=== PATIENT | female | born 1985 | race Hispanic/Latino ===

== ENCOUNTER 2020-04-09 06:08 | Inpatient (IN) | payer OTHER, SELFPAY ==
[2020-04-09] VITALS (141 sets, daily range): BP systolic 81–151; BP diastolic 42–108; PULSE 51–223; RESP 11–21; TEMP 36.4–37.8; O2SAT 93–100
--- NOTE | 2020-04-09 08:29 | LDADM ---
This patient, Lisset Valdes, was admitted to Labor/Delivery/Recovery 105 on 04/09/20 at 06:08. Plans for labor, pain management and were discussed with patient. Patient/family oriented to hospital policies and general routines including ID bracelet, bed and alarms, visiting hours, pain management, procedures, bathroom and other care routines, personal items, smoking policy, room service/diet and guest tray routines, security routines, and visiting hours. Patient/Family are encouraged to report perceived risks to care and to ask questions if they do not understand what they are told or what they should do. See OBIX for further documentation.
[2020-04-09 08:45] LABS: Basophils Percent Auto 0.5 % (0.2-1.2); Eosinophils Absolute Auto 0.1 K/mm3 (0-0.3); Eosinophils Percent Auto 1.9 % (0-4.4); Immature Granulocyte Absolute 0.02 K/mm3 (0.00-0.031); Immature Granulocyte Percent A 0.3 % (0-0.5); Lymphocytes Absolute Auto 1.19 K/mm3 (0.9-3.2); Lymphocytes Percent Auto 18.5 % (18.3-44.2); Mean Corpuscular HGB Conc 32.4 g/dl (32-36); Mean Corpuscular Hemoglobin 26.7 pg (26-34); Mean Corpuscular Volume 82.2 fl (80-100); Mean Platelet Volume 11.2 fl (7.4-10.4); Monocytes Absolute Auto 0.5 K/mm3 (0.1-0.6); Monocytes Percent Auto 8.2 % (2.6-8.5); Neutrophils Absolute Auto 4.5 K/mm3 (1.3-6.7); Neutrophils Percent Auto 70.6 % (45.5-73.1); Platelet Count Result 227 k/mm3 (150-375); Red Cell Distribution Width 13.5 % (11.5-14.5); White Blood Count 6.4 K/mm3 (4.5-10.0)
[2020-04-09] MEDS: LACTATED RINGERS 1,000 ML 125 ML IV CONT ×3 (08:58→14:30)
[2020-04-09] MEDS: OXYTOCIN 30 UNITS/NS 500 ML 30 UNITS/500 ML BAG 6 UNITS IV CONT (08:58)
[2020-04-09] MEDS: AMPICILLIN 2 GM/NS 100 ML 2 GM/100 ML BAG IVPB (17:55)
[2020-04-09] MEDS: SODIUM CHLORIDE 0.9% IV 300 ML 600 ML I-UTERINE (18:05)
[2020-04-09 19:16] LABS: Rubella IgG Antibody 54.3 IU/ML
[2020-04-09 19:21] LABS: Hepatitis B Surface Antigen Negative (Negative)
--- NOTE | 2020-04-09 20:07 | WPDANESEPP ---
Anes - Eval Pre Procedure Procedure: Labor epidural Date/Time: 04/09/20 20:07 Surgeon: Davie Preop Diagnosis: Abd pain with contractions Pre Op Diagnosis: leaking Patient Data Age: 34 Gender: F Height: Weight: Last Vital Signs Temp 98 F 04/09/20 18:16 Pulse 223 H 04/09/20 19:46 BP 148/108 H 04/09/20 19:46 Pulse Ox 100 04/09/20 20:06 Allergies Allergy/AdvReac Type Severity Reaction Status Date / Time No Known Allergies Allergy Verified 11/17/15 18:52 Home Medications Medication Instructions Recorded Confirmed Type pantoprazole 40 mg PO HS 04/06/20 04/06/20 History Laboratory Tests 04/09/20 04/09/20 04/09/20 08:39 08:40 08:40 WBC 6.4 K/mm3 K/mm3 (4.5-10.0) RBC 4.50 M/mm3 M/mm3 (4.2-5.4) Hgb 12.0 g/dL g/dL (12.0-15.0) Hct 37.0 % % (37.0-47.0) MCV 82.2 fl fl (80-100) MCH 26.7 pg pg (26-34) MCHC 32.4 g/dl g/dl (32-36) RDW 13.5 % % (11.5-14.5) Plt Count 227 k/mm3 k/mm3 (150-375) MPV 11.2 fl H fl (7.4-10.4) Immature Gran % (Auto) 0.3 % % (0-0.5) Neut % (Auto) 70.6 % % (45.5-73.1) Lymph % (Auto) 18.5 % % (18.3-44.2) [place] % (Auto) 8.2 % % (2.6-8.5) Eos % (Auto) 1.9 % % (0-4.4) Baso % (Auto) 0.5 % % (0.2-1.2) Lymph # (Auto) 1.19 K/mm3 K/mm3 (0.9-3.2) [place] # (Auto) 0.5 K/mm3 K/mm3 (0.1-0.6) Eos # (Auto) 0.1 K/mm3 K/mm3 (0-0.3) Baso # (Auto) 0.0 K/mm3 K/mm3 (0.0-0.1) Abs Immat Gran (auto) 0.02 K/mm3 K/mm3 (0.00-0.031) Absolute Neuts (auto) 4.5 K/mm3 K/mm3 (1.3-6.7) Absolute Nucleated RBC 0.0 K/mm3 K/mm3 (0.0-0.012) Nucleated RBC % 0.0 % % (0.0-0.2) RPR Pending Hep Bs Antigen Rubella IgG Antibody Blood Type B Positive Antibody Screen Negative 04/09/20 04/09/20 08:40 08:40 WBC RBC Hgb Hct MCV MCH MCHC RDW Plt Count MPV Immature Gran % (Auto) Neut % (Auto) Lymph % (Auto) [place] % (Auto) Eos % (Auto) Baso % (Auto) Lymph # (Auto) [place] # (Auto) Eos # (Auto) Baso # (Auto) Abs Immat Gran (auto) Absolute Neuts (auto) Absolute Nucleated RBC Nucleated RBC % RPR Hep Bs Antigen Negative (Negative) Rubella IgG Antibody 54.3 IU/ML IU/ML (10 - ) Blood Type Antibody Screen Patient hx anesthesia problems: none Family hx anesthesia problems: none PMFSH Social History Social History Smoking status: Never smoker Second hand tobacco smoke exposure: No Substance use: never Gender identity (if verbalized by the patient): Female Spiritual care concerns: No Exam Day of Procedure 04/09/20 20:07 Patient weight: normal Neurological: alert and oriented
--- NOTE | 2020-04-09 20:53 | PM.IMHP ---
H&P: HPI History of Present Illness Chief complaint: leaking Narrative: Lisset Valdes is a 34 year old female at 39+4 who came in this morning after leaking fluid started around 1900 04/08. She was confirmed to have SROM and was 3-4 cm on admission. She was augmented with pitocin, which had to be stopped a few times due to variable and then late decelerations. She has now been 7-8 cm for about 4 hours despite adequate ctx on IUPC, and fetus is having repetitive decels, some late and some variable. Review of Systems Review of Systems: All systems reviewed & are unremarkable except as noted in HPI and below PMFSH Social History Social History Smoking status: Never smoker Second hand tobacco smoke exposure: No Substance use: never Gender identity (if verbalized by the patient): Female Spiritual care concerns: No Meds Home Medications and Allergies Home Medications Medication Instructions Recorded Confirmed Type pantoprazole 40 mg PO HS 04/06/20 04/06/20 History Allergies Allergy/AdvReac Type Severity Reaction Status Date / Time No Known Allergies Allergy Verified 11/17/15 18:52 Vital Signs Vital Signs - 24 hr 04/09/20 07:00 04/09/20 08:15 04/09/20 08:17 Temperature 36.6 C Pulse Rate 63 67 Blood Pressure 111/64 107/72 Pulse Oximetry 04/09/20 08:31 04/09/20 08:46 04/09/20 09:00 Temperature 36.4 C Pulse Rate 64 61 Blood Pressure 120/75 117/69 Pulse Oximetry 04/09/20 09:01 04/09/20 09:16 04/09/20 09:31 Temperature Pulse Rate 68 69 73 Blood Pressure 120/72 125/69 120/74 Pulse Oximetry 04/09/20 09:46 04/09/20 10:01 04/09/20 10:16 Temperature Pulse Rate 68 68 73 Blood Pressure 122/70 125/76 114/74 Pulse Oximetry 04/09/20 10:31 04/09/20 10:46 04/09/20 11:00 Temperature 36.6 C Pulse Rate 78 74 Blood Pressure 120/77 120/77 Pulse Oximetry 04/09/20 11:01 04/09/20 11:16 07/18/20 11:46 Temperature Pulse Rate 67 81 68 Blood Pressure 122/71 117/75 122/68 Pulse Oximetry 04/09/20 12:01 04/09/20 12:16 04/09/20 12:32 Temperature Pulse Rate 72 66 66 Blood Pressure 136/73 135/73 116/63 Pulse Oximetry 04/09/20 12:46 04/09/20 13:00 04/09/20 13:01 Temperature 36.4 C Pulse Rate 69 66 Blood Pressure 115/75 129/68 Pulse Oximetry 04/09/20 13:16 04/09/20 13:31 04/09/20 13:46 Temperature Pulse Rate 71 66 68 Blood Pressure 114/73 115/74 112/65 Pulse Oximetry 04/09/20 13:55 04/09/20 13:56 04/09/20 13:57 Temperature Pulse Rate 69 72 Blood Pressure 118/69 118/60 Pulse Oximetry 99 04/09/20 13:59 04/09/20 14:00 04/09/20 14:01 Temperature Pulse Rate 65 73 Blood Pressure 109/60 117/61 Pulse Oximetry 99 04/09/20 14:04 04/09/20 14:06 04/09/20 14:09 Temperature Pulse Rate 68 64 62 Blood Pressure 121/69 112/56 L 107/59 L Pulse Oximetry 04/09/20 14:11 04/09/20 14:13 04/09/20 14:16 Temperature Pulse Rate 64 62 61 Blood Pressure 108/57 L 111/58 L 112/64 Pulse Oximetry 04/09/20 14:19 04/09/20 14:21 04/09/20 14:24 Temperature Pulse Rate 57 L 59 L 61 Blood Pressure 107/54 L 110/61 107/47 L Pulse Oximetry 04/09/20 14:26 04/09/20 14:29 04/09/20 14:31 Temperature Pulse Rate 79 66 63 Blood Pressure 94/59 L 103/57 L 109/66 Pulse Oximetry 04/09/20 14:34 04/09/20 14:36 04/09/20 14:46 Temperature Pulse Rate 59 L 55 L 54 L Blood Pressure 107/59 L 113/60 118/65 Pulse Oximetry 04/09/20 15:00 04/09/20 15:01 04/09/20 15:16 Temperature 36.6 C Pulse Rate 55 L 57 L Blood Pressure 114/64 109/63 Pulse Oximetry 04/09/20 15:31 04/09/20 15:37 04/09/20 15:42 Temperature Pulse Rate 53 L Blood Pressure 118/67 Pulse Oximetry 99 99 04/09/20 15:46 04/09/20 15:47 04/09/20 15:52 Temperature Pulse Rate 58 L Blood Pressure 90/46 L Pulse Oximetry
--- NOTE | 2020-04-09 20:56 | WPDANESEFPP ---
Anes - Eval Final PreProcedure Day of Procedure 04/09/20 20:56 Patient weight: obese Heart: regular rate and rhythm Lungs: clear to auscultation and normal air movement Airway: Mallampati scale class II Neurological: alert and oriented Last oral intake: >/= 8 hours ASA classification: II Emergent: yes Anesthetic plan: proceed Anesthesia type and monitoring: regional epidural and standard monitoring Informed Consent: The patient's anesthetic plan and its attendant risks and benefits were discussed with the patient/family/POA. Questions were solicited and answers provided to the satisfaction of the patient/family/POA.
--- NOTE | 2020-04-09 21:00 | PM.OP ---
Procedure Note - Brief Procedure Note - Brief Date of procedure: 04/09/20 Pre-op diagnosis: leaking Arrest of dilation, decelerations Post-op diagnosis: same Procedure performed: Primary LTCS Anesthesia: epidural Surgeon: Janet Ward MD Estimated blood loss (mL): 395 Drains: Yes (Heart) Packing: No Pathology: none sent Complications: No immediate complications Condition: stable Disposition: PACU Findings: Male infant, cephalic, Apgars 9/9, weight 7# 1oz; meconium fluid; normal uterus, tubes, and ovaries
[2020-04-09] MEDS: KETOROLAC 30 MG/ML VIAL (*BKC) IV PUSH (22:30)
[2020-04-09] MEDS: DEXTROSE 5%/0.45% SOD CHL 1,000 ML 125 ML IV CONT (23:15)
[2020-04-09] MEDS: MEPERIDINE HCL INJ 50 MG/ML AMPUL 12.5 MG IV PUSH (23:15)
[2020-04-10] VITALS (15 sets, daily range): BP systolic 91–116; BP diastolic 54–66; PULSE 57–85; RESP 14–20; TEMP 36.9–37.5; O2SAT 95–100
--- NOTE | 2020-04-10 00:07 | PC.NURSE ---
Patient transferred to post room #291 via stretcher. Support person present who helped interpret for the patient as well as the nurse, the patient's is also present. Oriented to unit, room, information board, admission packet and security measures. Patient verbalizes understanding. Patient requested baby be taken to the nursery so she and her could rest.
--- NOTE | 2020-04-10 01:03 | PC.NURSE ---
Patient transferred to post room #291 via stretcher. Support person present. Oriented to unit, room, information board, rooming in, admission packet and security measures. Patient verbalizes understanding.
[2020-04-10] MEDS: KETOROLAC 30 MG/ML VIAL (*BKC) IV PUSH ×2 (04:06→12:30)
[2020-04-10] MEDS: diphenhydrAMINE HCl INJ 50 MG/ML VIAL 25 MG IV PUSH (04:16)
[2020-04-10 05:06] LABS: Basophils Percent Auto 0.3 % (0.2-1.2); Eosinophils Percent Auto 0.2 % (0-4.4); Hemoglobin 9.3 g/dL (12.0-15.0); Immature Granulocyte Absolute 0.02 K/mm3 (0.00-0.031); Immature Granulocyte Percent A 0.2 % (0-0.5); Lymphocytes Absolute Auto 1.03 K/mm3 (0.9-3.2); Lymphocytes Percent Auto 10.2 % (18.3-44.2); Mean Corpuscular HGB Conc 32.1 g/dl (32-36); Mean Corpuscular Hemoglobin 26.5 pg (26-34); Mean Corpuscular Volume 82.6 fl (80-100); Mean Platelet Volume 11.4 fl (7.4-10.4); Monocytes Absolute Auto 0.5 K/mm3 (0.1-0.6); Monocytes Percent Auto 4.9 % (2.6-8.5); Neutrophils Absolute Auto 8.5 K/mm3 (1.3-6.7); Neutrophils Percent Auto 84.2 % (45.5-73.1); Platelet Count Result 175 k/mm3 (150-375); Red Blood Count 3.51 M/mm3 (4.2-5.4); Red Cell Distribution Width 13.5 % (11.5-14.5); White Blood Count 10.1 K/mm3 (4.5-10.0)
[2020-04-10] MEDS: KCL 20 MEQ/D5/0.45% SOD CHL 1,000 ML 125 ML IV CONT (07:49)
[2020-04-10] MEDS: SALINE 0.65% NAS SOLN 44 ML BTL 1 SPRAY NASAL (09:17)
--- NOTE | 2020-04-10 09:34 | WPDANLDNPN2 ---
Anes-Prog Note L&D-Neuraxial Date/Time: 04/10/20 09:34 Neuraxial medications: epidural PF morphine Opiod-related complaints: none Patient feedback: Patient satisfied with post-operative pain management.
--- NOTE | 2020-04-10 09:34 | WPDANLDPN2 ---
Anes-Prog Note L&D Date/Time: 04/10/20 09:34 Comfortable throughout: labor, delivery and section Neuraxial method: epidural Epidural/Spinal procedure site: clean & non-tender Neuro status: Neuro function grossly intact. Cardiovascular status: normal Respiratory status: normal Airway patency: baseline Mental status: baseline Post-Op hydration status: normal Vital Signs: Last Vital Signs Temp 37.5 C 04/10/20 08:00 Pulse 70 04/10/20 08:00 Resp 20 04/10/20 08:00 BP 91/54 L 04/10/20 08:00 Pulse Ox 98 04/10/20 08:00 I/O: Intake & Output 04/09/20 04/10/20 04/10/20 23:59 07:59 15:59 Intake Total 1100 200 Output Total 945 375 Balance 155 -175 Post-procedural complaints: none Patient feedback: Patient satisfied with anesthetic care.
--- NOTE | 2020-04-10 10:04 | PM.OBPNVD ---
OB - PN: Subj Subjective Date/time seen: 04/10/20 10:04 Patient comments: no complaints, pain well controlled, incisional pain, tolerating diet, flatus present and other (Lochia similar to menses) baby status: doing well OB - PN: Obj Data Labs CBC & Chem 7: 04/10/20 04:22 Labs: Laboratory Results - last 24 hr 04/09/20 04/09/20 04/10/20 08:40 08:40 04:22 WBC 10.1 H RBC 3.51 L Hgb 9.3 L Hct 29.0 L MCV 82.6 MCH 26.5 MCHC 32.1 RDW 13.5 Plt Count 175 MPV 11.4 H Immature Gran % (Auto) 0.2 Neut % (Auto) 84.2 H Lymph % (Auto) 10.2 L [place] % (Auto) 4.9 Eos % (Auto) 0.2 Baso % (Auto) 0.3 Lymph # (Auto) 1.03 [place] # (Auto) 0.5 Eos # (Auto) 0.0 Baso # (Auto) 0.0 Abs Immat Gran (auto) 0.02 Absolute Neuts (auto) 8.5 H Absolute Nucleated RBC 0.0 Nucleated RBC % 0.0 Hep Bs Antigen Negative Rubella IgG Antibody 54.3 OB - PN A/P Plan day: 1 (s/p C section, doing well) Plan: routine care Time Spent With Patient Time: Total time spent is greater than 50% in coordination of care (as documented) at patient's floor/unit and/or counseling patient: Exam Const: General: no acute distress Resp: Auscultation: clear to auscultation bilaterally Cardio: Rate: regular rate Rhythm: regular rhythm GI: Inspection: non-distended, incision (Intact without erythema, drainage, or induration) and other (Fundus firm and nontender at umbilicus) GI Palp: Yes abdominal tenderness (appropriate ) and Yes Soft to palpation Extrem: General: no edema
[2020-04-10] MEDS: DOCUSATE SODIUM 100 MG CAPSULE PO ×2 (12:56→16:44)
[2020-04-10] MEDS: MULTIVIT/MIN/PREN/FOL AC/IRON TABLET 1 TAB PO (12:56)
[2020-04-10] MEDS: POLYSACCHARIDE IRON COMPLEX 150 MG CAPSULE PO (12:56)
[2020-04-10] MEDS: IBUPROFEN 600 MG TABLET PO ×2 (16:45→22:54)
--- NOTE | 2020-04-10 16:54 | PC.NURSE ---
Used field mechanic/site lead to explain to pt about discontinuing day cath. Also inquired about pain medication and increase liquid intake with pt. Pt also states she has no questions for this RN at this time. Informed both pt and if need anything to call out to nurses station.
[2020-04-10] MEDS: PANTOPRAZOLE 40 MG TABLET PO (22:54)
--- NOTE | 2020-04-11 07:43 | PM.OBPNVD ---
OB - PN: Subj Subjective Date/time seen: 04/11/20 07:43 Patient comments: incisional pain, tolerating diet, flatus present and other (Ambulating and voiding without problems. Lochia similar to menses) [place] baby status: doing well Narrative: She c/o nausea but no emesis. She has been getting out of bed only to use restroom. Pain does improve after pain medication, but she hasn't had any today OB - PN: Obj Data Labs CBC & Chem 7: 04/10/20 04:22 OB - PN A/P Plan day: 2 (s/p C section, doing well) Plan: routine care Comments: We'll try giving her medication to help with nausea and advance diet as tolerated since she would like to eat solid food. I encouraged her to ambulate more today, in the halls in addition to her room, to encourage bowels to move gas and stool, through. I also advised her to ask for pain medication or anything else she needs whenever she needs it and not let pain or other complaint get out of control before mentioning it. She expressed understanding. Possible discharge tomorrow. Multiple Tube Winding Machine Operator services utilized for communication, and her nurse Kaila was present Time Spent With Patient Time: Total time spent is greater than 50% in coordination of care (as documented) at patient's floor/unit and/or counseling patient: Time with patient: 15 - 25 minutes Review of Systems Review of Systems: All systems reviewed & are unremarkable except as noted in HPI and below Exam Const: General: no acute distress Resp: Auscultation: clear to auscultation bilaterally Cardio: Rate: regular rate Rhythm: regular rhythm GI: Inspection: distended, incision (Intact without erythema, drainage, or induration) and other (Fundus firm and nontender below umbilicus) GI Palp: Yes abdominal tenderness (appropriate) and Yes Soft to palpation Extrem: General: no edema
[2020-04-11 07:45] VITALS: BP 100/67; PULSE 77; RESP 18; TEMP 36.7
[2020-04-11] MEDS: POLYSACCHARIDE IRON COMPLEX 150 MG CAPSULE PO ×2 (07:49→17:54)
[2020-04-11] MEDS: SIMETHICONE 80 MG TAB.CHEW PO ×2 (07:49→14:28)
[2020-04-11] MEDS: IBUPROFEN 600 MG TABLET PO ×3 (07:49→20:44)
[2020-04-11] MEDS: DOCUSATE SODIUM 100 MG CAPSULE PO ×2 (07:49→17:54)
--- NOTE | 2020-04-11 07:49 | PM.OBDSVD ---
DS: Admitting Diagnosis Admitting Diagnosis Admitting Diagnosis: Other uterine inertia DS: Discharge Diagnosis Discharge Diagnosis (1) delivery, delivered, current hospitalization: Code(s): O82 - Encounter for delivery without indication Status: Acute OB - DS: Summary OB Procedures : None OB Procedures Intrapartum: OB Procedures: : None Peripartum Data Infant Delivery Method: Section Procedures: Procedures Operation Date: 04/09/20 20:20 Actual Procedures Side Surgeon p Section Bilateral Janet Ward MD complications: none Status at Discharge Functional status at discharge: independent ambulation Overall status at discharge: patient is progressing back to baseline Time Spent with Patient Time attestation: Total time spent providing and/or coordinating discharge services: Discharge Plan Discharge Attending physician on discharge: Monet Broderick Discharging Clinician: Luisa Garcia Patient Disposition: Home, Self-Care Activity: may shower and pelvic rest Diet: regular Wound Care Instructions: incision open to air Discharge Instructions: Education: Mom and Baby Guide Given to: Patient Follow-Up: Call your delivering provider's office for an appointment to be seen in: 1 and 4 weeks Mom and baby should come to the [facility] for the follow-up appointment. Appointment Date/Time: 04/14/2020 at 9:00 am Call [phone] if you are unable to keep your appointment time. BREAST CARE: 1. Wear a snug supportive bra. 2. For engorgement discomfort: Breast Feeding: A. Apply warm moist washcloths B. Express milk as needed to relieve engorgement C. Wear loose clothing Bottle Feeding: A. May apply ice packs 3. For sore nipples: A. Identify correct latch-on B. Apply warm moist washcloths before and after nursing C. Air dry nipples after nursing D. May apply Lansinoh cream to nipples ABDOMINAL INCISION: (if applicable) 1. Allow incision to air dry 2. Do NOT use lotions for powders on your incision 3. When showering, allow soap and water to run over the incision, but do not wash incision EPISIOTOMY/PERINEAL CARE: 1. Until bleeding stops, use your winter bottle after urinating 2. Change your pad frequently throughout the day 3. You may take sitz baths several times a day (fill your bathtub with warm water and soak for 20 minutes.) Do NOT bathe in the water 4. No tub baths until seen by your physician - You may shower ACTIVITY: 1. Rest as much as possible. 2. Do not exercise or lift anything heavier than your baby (such as laundry or other children.) 3. Avoid stairs or driving as much as possible. 4. Do not put anything into the vagina. No douching, tampons, or sexual activity until seen by physician. NOTIFY PHYSICIAN IF YOU HAVE ANY QUESTIONS OR IF ANY OF THE FOLLOWING SYMPTOMS OCCUR: 1. If your episiotomy or incision becomes red, swollen, or more painful than what you have experienced in the hospital. 2. If your vaginal bleeding becomes foul smelling. 3. If your vaginal bleeding becomes more heavy than a period or if your bleeding changes from pink to bright red. However, you may pass an occasional walnut-sized clot once or twice for the first week . 4. If you experience a sharp, shooting pain in you calves. 5. If you discover a hard, reddened area on your breast or if you experience flu-like symptoms. DIET: 1. Eat regular, well-balanced meals. 2. Drink plenty of fluids daily. If , drink to thirst. Stand Alone Forms: General Discharge Information, Work/School Release IP Follow-up/Referrals: Monet Broderick MD [Physician] - 1 Week Discharge Medications: New hydrocodone-acetaminophen 5-325 mg Tablet 1 tab PO Q3H PRN (Reason: Moderate Pain (4
[2020-04-11] MEDS: ONDANSETRON HCL ODT 4 MG TABLET (07:52)
[2020-04-11 08:49] LABS: Rapid Plasma Reagin Non-Reactive (NonReactive)
[2020-04-11] MEDS: MULTIVIT/MIN/PREN/FOL AC/IRON TABLET 1 TAB PO (11:33)
[2020-04-11 20:40] VITALS: BP 102/62; PULSE 63; RESP 16; TEMP 36.6; O2SAT 99
--- NOTE | 2020-04-12 07:22 | PM.OBPNVD ---
OB - PN: Subj Subjective Date/time seen: 04/12/20 07:22 Patient comments: incisional pain [place] baby status: doing well OB - PN: Obj Data Labs CBC & Chem 7: 04/10/20 04:22 Labs: Laboratory Results - last 24 hr 04/09/20 08:40 RPR Non-reactive OB - PN A/P Plan day: 3 Plan: discharge home Time Spent With Patient Time: Total time spent is greater than 50% in coordination of care (as documented) at patient's floor/unit and/or counseling patient: Review of Systems Review of Systems: All systems reviewed & are unremarkable except as noted in HPI and below Exam Const: General: comfortable Psych: Appearance: grossly normal Affect: normal affect Attitude: cooperative Judgement: Good judgement present (Psych)
[2020-04-12] MEDS: IBUPROFEN 600 MG TABLET PO (08:08)
[2020-04-12] MEDS: MULTIVIT/MIN/PREN/FOL AC/IRON TABLET 1 TAB PO (08:09)
[2020-04-12] MEDS: POLYSACCHARIDE IRON COMPLEX 150 MG CAPSULE PO (08:09)
[2020-04-12] MEDS: DOCUSATE SODIUM 100 MG CAPSULE PO (08:10)
[2020-04-12 09:20] VITALS: BP 114/73; PULSE 73; RESP 18; TEMP 36.7; O2SAT 97
--- NOTE | 2020-04-12 10:30 | PC.NURSE ---
All education done thru the manager competitive intelligence per hospital policy. Mother will attempt infant to breast at times, she then bottle feeds. Mother has reported that she will bottle feed and then has decided she wishes to pump. Breast pump provided due to mother's wishes. Instructions given on breast pump care and usage, pumping schedule, nipple care, and collection and storage of breast milk. Encouraged [id number], breast massage and manual expression to stimulate supply. Pumping log provided and reviewed. Assessed patient for correct flange size, placement and draw. Patient verbalizes and demonstrates understanding of instructions. 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 Again offered to assist mother with attempting to breast, mother declines and states she will bottle feed until her milk comes in. Mother is feeding as required and waking to feed if needed. is currently meeting outcomes for weight, output, jaundice and feeding frequencies. Mother states she feels confident to continue current feeding plan at home. Reviewed transition to breast milk, signs of adequate intake, and engorgement/relief. Instructed to call ICP if intake/output less than required. Reviewed regular medications mother is taking. Information provided per Kori. Reviewed community resources on the [facility] website and in the Mom/Baby guide. Information on outpatient services provided. Mother has no further questions at this time.
--- NOTE | 2020-04-12 14:16 | PC.NURSE ---
Halus translation used for all Assessments, questions asked by patient, and for D/C education. She V/U'd to it all.
--- NOTE | 2020-04-13 12:53 | OP_ITS ---
DATE OF PROCEDURE: 04/09/2020 PREOPERATIVE DIAGNOSES: Intrauterine at 39 weeks and 4 days, arrest of dilation, nonreassuring heart tracing. POSTOPERATIVE DIAGNOSES: Intrauterine at 39 weeks and 4 days, arrest of dilation, nonreassuring heart tracing. PROCEDURE PERFORMED: Primary low-transverse section. ANESTHESIA: Epidural. ESTIMATED BLOOD LOSS: 395 mL. COMPLICATIONS: None. FINDINGS: Male , cephalic presentation, thick meconium fluid. Apgars 9 and 9. Weight 7 pounds 1 ounce. Normal uterus, tubes, and ovaries. INDICATIONS: A 34-year-old, G2, P0-0-1-0, who came in the morning of April 09 after she thought her membranes had ruptured at approximately 7 o'clock p.m. on April 08. She was found to have ruptured membranes, was 3-4 cm dilated at that time. She was augmented using Pitocin throughout the day, it had to be shut off multiple times due to decelerations. She remained between 7 and 8 cm for about 4 hours despite adequate uterine contractions on intrauterine pressure catheter and the baby was starting to have late decelerations in addition to the variable decelerations she had been having earlier, so she was recommended to proceed with . She did sign consent after the risks, benefits, complications, and alternatives were discussed using the help of an personal lines advisor since she speaks Indonesian. DESCRIPTION OF PROCEDURE: She was taken to the operating room, where epidural anesthesia was obtained and found to be adequate. She was prepared and draped in the normal sterile fashion in the dorsal supine position with a leftward tilt. A Pfannenstiel skin incision was made with a scalpel and extended to the underlying layer of fascia with the scalpel. The fascia was incised in the midline, extended laterally with the Morrissey scissors. The underlying rectus muscles were dissected off bluntly and sharply and in the midline. The peritoneum was entered bluntly and then extended sharply inferiorly and superiorly with good visualization of the bladder. The bladder blade was inserted. The vesicouterine peritoneum was tented up with the Metzenbaum scissors and extended laterally. The bladder flap was created digitally. The bladder blade was reinserted. The lower uterine segment was incised in a transverse fashion with the scalpel. The incision was digitally stretched in a cephalocaudad direction. The membranes were ruptured with thick meconium noted. The infant's head was delivered atraumatically and bulb suctioned on the maternal abdomen. The shoulders and body were delivered easily. The cord was clamped x2 and cut. The infant was passed to the awaiting nurse. Cord gas and cord blood were obtained. The placenta was manually extracted. The uterus was exteriorized and cleared of all clots and debris. The uterine incision was closed using 0 Vicryl in a running locked fashion. A 2nd layer of the same suture was used for hemostasis and reinforcement. The uterus was then returned to the abdomen. The gutters were cleared of all clots and debris. The uterine incision was reinspected. There was 1 bleeding point, which was controlled with a 0 Vicryl [id number] suture. The rectus muscles were then inspected. Any bleeding points were cauterized. The rectus muscles were reapproximated using 1 [id number] 0 Vicryl suture. The fascia was then closed using 0 Vicryl in a running fashion. The subcutaneous tissue was irrigated. All bleeding points were cauterized. The subcutaneous tissue was reapproximated using 2-0 Vicryl [id number] sutures and the skin was closed using Insorb absorbable nakia. She tolerated the procedure well. Sponge, lap, needle, and instrument counts were correct x2, and she was taken to the recovery room in
[2020-04-14 09:26] VITALS: BP 129/71; PULSE 65; RESP 20; TEMP 36.7; O2SAT 100
== END 2020-04-12 13:43 | disposition home or self-care (01) | DRG 540 ==
LOC: ANHLDR 07:10 → ANHOB2 04-10 12:35 → ANHLDR 04-14 07:46 → ANHOB2 04-14 07:46
PROVIDERS: Admitting Provider Obstetrics & Gynecology; Visit Provider Obstetrics & Gynecology
PROC: 10D00Z1 Extraction of Products of Conception, Low, Open Approach (ICD-10-PCS; CPT 59514; principal; 2020-04-09 20:20)
DX: O42.92 Full-term premature rupture of membranes, unspecified as to length of time between rupture and onset of labor (principal); Z37.0 Single live birth; Z3A.39 39 weeks gestation of pregnancy; O36.8330 Maternal care for abnormalities of the fetal heart rate or rhythm, third trimester, not applicable or unspecified; O62.2 Other uterine inertia; O99.214 Obesity complicating childbirth; E66.9 Obesity, unspecified
CPT/HCPCS: 36415; 85025; 86592; 86762; 86850; 86900; 86901; 87340; A9270; J0290; J0690; J1200; J1885; J2175; J2274; J2370; J2405; J2590; J2795; J3480; J7030; J7120

== ENCOUNTER 2020-04-15 22:08 | Observation (INO) | payer OTHER, SELFPAY ==
--- NOTE | ~2020-04-15 | CT_ITS ---
EXAMINATION: CT abdomen pelvis w con EXAM DATE: 04/16/2020 00:04 INDICATION: Abdominal pain, recent section one week ago. No bowel movement in 6 days. TECHNIQUE: Spiral CT of the abdomen and pelvis was performed following intravenous injection of 100 m L Omnipaque 350. Axial, coronal and sagittal images were reviewed. The dose-length product (DLP) fo r this examination was 605.93 mGy-cm. The exposure was tailored according to patient size (auto mA e xposure control), and iterative reconstruction (ASIR) was used as additional dose reduction technique . Comparison is made to prior examination from 06/18/2016. FINDINGS: There is a hemangioma within the left liver lobe laterally, contiguous to the spleen, measu ring 2.1 cm in size, clearly demonstrating peripheral nodular enhancement on the previous examination . Several other subcentimeter liver hypodensities too small to characterize but likely benign. The l iver, spleen, adrenal glands and pancreas are otherwise unremarkable. Gallbladder is unremarkable. No biliary obstruction. Portal and splenic veins are patent. Kidneys enhance symmetrically. There is no hydronephrosis. Enlarged uterus, some fluid and several small foci of gas in the lower uterine segment. Th is fluid pocket region measures about 3 x 4 cm in greatest axial dimensions, differential diagnosis i ncluding seroma, hematoma, abscess. The bladder is unremarkable. There is no retroperitoneal or pelv ic lymphadenopathy. Fat stranding along the umbilicus. The appendix is normal. The stomach and small bowel are unremarkable. There is expected amount of c olonic stool. No free intraperitoneal gas. The heart is normal in size. There are no pericardial or pleural effusions. The lung bases are unremarkable. The bones are unremarkable. IMPRESSION: Enlarged uterus, small pocket of fluid and several punctate calcific foci in t he lower uterine segment. Could be normal postoperative appearance, hematoma, seroma. Endometritis, a bscess not excludable. Reviewed, dictated and finalized at location G. IMPRESSION: Enlarged uterus, small pocket of fluid and several punct ate calcific foci in the lower uterine segment. Could be normal postoperative a ppearance, hematoma, seroma. Endometritis, abscess not excludable.
[2020-04-15 22:20] VITALS: BP 115/71; PULSE 67; RESP 20; TEMP 37.2; O2SAT 100
[2020-04-15 22:33] LABS: Basophils Percent Auto 0.6 % (0.2-1.2); Eosinophils Absolute Auto 0.2 K/mm3 (0-0.3); Eosinophils Percent Auto 3.1 % (0-4.4); Hemoglobin 10.6 g/dL (12.0-15.0); Immature Granulocyte Absolute 0.06 K/mm3 (0.00-0.031); Immature Granulocyte Percent A 0.9 % (0-0.5); Lymphocytes Absolute Auto 0.93 K/mm3 (0.9-3.2); Lymphocytes Percent Auto 14.5 % (18.3-44.2); Mean Corpuscular HGB Conc 32.1 g/dl (32-36); Mean Corpuscular Hemoglobin 26.7 pg (26-34); Mean Corpuscular Volume 83.1 fl (80-100); Mean Platelet Volume 9.7 fl (7.4-10.4); Monocytes Absolute Auto 0.5 K/mm3 (0.1-0.6); Monocytes Percent Auto 7.8 % (2.6-8.5); Neutrophils Absolute Auto 4.7 K/mm3 (1.3-6.7); Neutrophils Percent Auto 73.1 % (45.5-73.1); Platelet Count Result 301 k/mm3 (150-375); Red Blood Count 3.97 M/mm3 (4.2-5.4); Red Cell Distribution Width 13.6 % (11.5-14.5); White Blood Count 6.4 K/mm3 (4.5-10.0)
[2020-04-15 22:45] LABS: Alanine Aminotransferase 19 U/L (4-35); Albumin Level 3.6 g/dL (3.5-5.1); Alkaline Phosphatase 165 U/L (38-126); Anion Gap 11.4 mmol/L (7-16); Aspartate Amino Transferase 26 U/L (14-36); Bilirubin,Total 0.2 mg/dL (0.2-1.3); Blood Urea Nitrogen 14 mg/dL (7-17); Calcium 8.9 mg/dL (8.4-10.2); Carbon Dioxide 23 mmol/L (22-30); Chloride 107 mmol/L (98-107); Estimated Glomerular Filt Rate > 60; Glucose 117 mg/dL (65-105); Lipase 119 U/L (23-300); Potassium 3.4 mmol/L (3.4-5.0); Sodium 138 mmol/L (137-145)
--- NOTE | 2020-04-15 23:29 | ED.ABDPAIN ---
HPI - Abdominal Pain General Chief Complaint: Abdominal Pain Stated Complaint: abd bump Time Seen by Provider: 04/15/20 23:25 Source: patient Mode of arrival: ambulatory Limitations: language barrier (Pakistani-speaking, I am able to speak Pakistani also use of emergency room physician) History of Present Illness HPI narrative: Patient is a 34-year-old female G2, P1, currently 7 days from a section at this hospital with Dr. Ward who presents for evaluation of abdominal pain. Pain started 3 days ago, is located throughout her abdomen associated with abdominal distention and bloating. Pain is intermittently severe in nature. She has reported some constipation. She also reports back pain. She is reporting some hematuria without dysuria. Mild vaginal bleeding persists since the section. No purulent or malodorous discharge. Patient reports mild fever yesterday although she is unsure what the actual temperature was. She reports nausea and vomiting. She denies leg swelling, calf pain, chest pain or shortness of breath. Patient also reports history of nephrolithiasis. Related Data Home Medications Medication Instructions Recorded Confirmed Classic 1 tablet PO DAILY 10/18/19 10/18/19 cephalexin 500 mg PO BID 10/18/19 10/18/19 metronidazole 500 mg PO BID 10/18/19 10/18/19 omeprazole 20 mg PO DAILY 10/18/19 10/18/19 terconazole 1 appful VAGINAL HS 10/18/19 10/18/19 pantoprazole 40 mg PO HS 04/06/20 04/06/20 Allergies Allergy/AdvReac Type Severity Reaction Status Date / Time No Known Allergies Allergy Verified 04/15/20 22:23 Review of Systems Review of Systems: Narrative: CONSTITUTIONAL: Reports fever yesterday EYES: Denies visual changes, redness, or discharge. ENT: Denies rhinorrhea, congestion, sore throat, or otalgia. CARDIOVASCULAR: Denies chest pain, palpitations, or edema. RESPIRATORY: Denies cough or dyspnea. GASTROINTESTINAL: Reports abdominal pain, nausea, vomiting and constipation GENITOURINARY: Reports dysuria SKIN: Denies rash or itching. MUSCULOSKELETAL: Reports back pain NEUROLOGIC: Denies headache, numbness, or weakness. [facility] Past Medical History Medical History (Updated 04/16/20 @ 02:13 by Anjali Gaines MD) Abdominal pain, left lower quadrant delivery delivered delivery, delivered, current hospitalization Failure to progress in labor heart rate decelerations affecting management of mother No significant past medical history Surgical History Surgical History (Updated 04/13/20 @ 09:09 by Mari Cartwright) No significant past surgical history Social History Social History Smoking status: Never smoker Second hand tobacco smoke exposure: No Alcohol intake: never Substance use: never Gender identity (if verbalized by the patient): Female Spiritual care concerns: No Agree to blood products: Yes Exam Narrative: Exam Narrative: GENERAL: Awake, alert, conversant HEAD: Normocephalic, atraumatic. EYES: PERRLA and EOMI. ENT: Nares clear, no rhinorrhea or epistaxis. Mucous membranes moist. NECK: Supple. CHEST: No respiratory distress, breathing even and non labored HEART: Regular rate, sinus rhythm ABDOMEN: Mild distention, tender throughout, no rebound, no guarding, incision site is clean, dry, intact, no erythema, no malodorous discharge, no dehiscence EXTREMITIES: Normal range of motion. No edema. SKIN: Warm, dry, no rash. NEURO:No focal deficits. Alert and oriented x3 Course Vital Signs Vital signs: Vital Signs Temperature 37.2 C 04/15/20 22:20 Pulse Rate 67 04/15/20 22:20 Respiratory Rate 20 04/15/20 22:20 Blood Pressure 115/71 04/15/20 22:20 Pulse Oximetry 100 04/15/20 22:20 Temperature 37.2 C 04/15/20 22:20 Pulse Rate 55 L 04/16/20 01:51 Respiratory Rate 14 04/16/20 01:51 Blood Pressure 120/73 04/16/20 01:51 Pulse Oximetr
[2020-04-15] MEDS: ONDANSETRON INJ 4 MG/2 ML VIAL IV PUSH (23:49)
[2020-04-15] MEDS: MORPHINE SULFATE 4 MG/ML INJ IV PUSH (23:49)
[2020-04-15] MEDS: SODIUM CHLORIDE 0.9% IV 1,000 ML 999 ML IV CONT (23:50)
[2020-04-15 23:56] LABS: Add Urine Microscopic? YES; Appearance Urine Cloudy (Clear); Bacteria Urine Trace /hpf; Bilirubin Urine Negative (Negative); Blood Urine 3+ (Negative); Color Urine Yellow (Yellow); Glucose Urine UA Negative (Negative); Ketones Urine Negative (Negative); Leukocyte Esterase Ur 2+ LEU/UL (Negative); Mucus Urine Rare /lpf; Nitrate Urine Negative (Negative); Protein Urine Negative (Negative); Specific Grav Ur 1.024 (1.001-1.035); Squamous Epithelial Cell Urine Many /hpf (Few); WBC Urine >75 /hpf
[2020-04-16 01:51] VITALS: BP 120/73; PULSE 55; RESP 14; O2SAT 100
[2020-04-16 03:07] VITALS: BP 121/87; PULSE 57; RESP 18; TEMP 36.1; O2SAT 100; BMI 31.1
[2020-04-16] MEDS: LACTATED RINGERS 1,000 ML 125 ML IV CONT ×3 (03:23→22:38)
[2020-04-16] MEDS: MORPHINE SULFATE 4 MG/ML INJ IV PUSH ×3 (03:23→22:41)
[2020-04-16] MEDS: ONDANSETRON INJ 4 MG/2 ML VIAL IV PUSH (03:24)
--- NOTE | 2020-04-16 03:39 | ADMGEN ---
This patient, Lisset Valdes, was admitted to 2 Medical Room 256- at 0240. Patient/family oriented to hospital policies and general routines including ID bracelet, bed and alarms, visiting hours, pain management, procedures, bathroom and other care routines, personal items, smoking policy, room service/diet, and visiting hours. Valuables list has been completed. Information on how to activate the Rapid Response Team has been discussed. Patient/Family are encouraged to report perceived risks to care and to ask questions if they do not understand what they are told or what they should do.
[2020-04-16 06:00] VITALS: BP 121/69; PULSE 50; RESP 16; TEMP 36.3; O2SAT 99
[2020-04-16 14:00] VITALS: BP 135/82; PULSE 58; RESP 16; TEMP 36.7; O2SAT 100
[2020-04-16] MEDS: metroNIDAZOLE 250 MG TABLET 500 MG PO (18:13)
--- NOTE | 2020-04-16 18:36 | PM.IMHP ---
H&P: HPI History of Present Illness Chief complaint: UTI, post operative fluid collection Narrative: Lisset Valdes is a 34 year old female Who is postoperative day 10 approximately from a delivery who presented to the emergency department earlier today with abdominal pain. The pain is lower abdominal / pelvic pain. Is in the area of the rectum and vagina. Evaluation emergency department revealed a 4 cm fluid collection it in the intrauterine cavity. The finding is nonspecific for seroma, hematoma, abscess. Patient indicated to me today that she has not had a bowel movement a days. She states her pain at this time is a 2/10. she denies any vaginal bleeding of significance. She denies any urinary symptoms. She denies any chest pain or shortness of breath. She denies any nausea, vomiting, fever, chills. Review of Systems Constitutional: Constitutional: Reports no additional constitutional complaints, Denies fatigue, Denies headache(s), Denies lethargy and Denies weakness Eyes: Eyes: Reports no additional eye complaints, Denies blurry vision and Denies photophobia ENT: Reports as per HPI, Denies headache(s) and Denies neck pain Cardiovascular: Cardiovascular: Denies chest pain, Denies diaphoresis, Denies leg edema, Denies palpitations and Denies dyspnea Respiratory: Respiratory: Denies hemoptysis, Denies dyspnea and Denies wheezing Gastrointestinal: Gastrointestinal: Denies abdominal pain, Denies melena, Denies bloating, Denies hematochezia, Denies nausea and Denies vomiting Genitourinary: Genitourinary: Reports no additional female genitourinary complaints Musculoskeletal: Musculoskeletal: Denies joint swelling, Denies neck pain, Denies numbness and Denies stiffness Neurologic: Denies Abnormal speech present, Denies confusion, Denies headache(s), Denies numbness and Denies weakness Psychiatric: Psychiatric: Denies anxiety, Denies confusion, Denies depression, Denies homicidal ideation and Denies suicidal ideation Endocrine: Endocrine: Denies fatigue and Denies palpitations Allergic/Immunologic: Allergic/Immunologic: Denies wheezing PMFSH Social History Social History Smoking status: Never smoker Second hand tobacco smoke exposure: No Alcohol intake: never Substance use: never Substance use type: does not use Gender identity (if verbalized by the patient): Female Spiritual care concerns: No Agree to blood products: Yes Meds Home Medications and Allergies Home Medications Medication Instructions Recorded Confirmed Type Classic 1 tablet PO DAILY 10/18/19 04/16/20 History cephalexin 500 mg PO BID 10/18/19 04/16/20 History omeprazole 20 mg PO DAILY 10/18/19 04/16/20 History polysaccharide iron complex 150 mg PO BIDWM #30 cap 04/12/20 04/16/20 Rx hydrocodone-acetaminophen [[place]] 1 tablet PO Q4-6H PRN 04/16/20 04/16/20 History Allergies Allergy/AdvReac Type Severity Reaction Status Date / Time No Known Allergies Allergy Verified 04/15/20 22:23 Vital Signs Vital Signs - 24 hr 04/15/20 22:20 04/16/20 01:51 04/16/20 03:07 Temperature 98.9 F 96.9 F L Pulse Rate 67 55 L 57 L Respiratory Rate 20 14 18 Blood Pressure 115/71 120/73 121/87 Pulse Oximetry 100 100 100 04/16/20 06:00 04/16/20 14:00 Temperature 97.3 F L 98.0 F Pulse Rate 50 L 58 L Respiratory Rate 16 16 Blood Pressure 121/69 135/82 Pulse Oximetry 99 100 Exam Const: General: healthy appearing, comfortable and no acute distress; No confusion Orientation/consciousness: No confusion Eyes: Direct Ophthalmoscopy: No photophobia Resp: Auscultation: clear to auscultation bilaterally, no rales, no rhonchi and no wheezes Cardio: Rate: regular rate Heart sounds: no click, no murmurs and no rubs GI: Inspection: non-distended GI Palp: No abdominal tenderness Auscultation: normal bowel sounds Neuro: General: No confusion Speech: No Abnor
[2020-04-16] MEDS: MAGNESIUM CITRATE 300 ML BTL PO (18:53)
[2020-04-16 20:00] VITALS: BP 131/71; PULSE 61; RESP 20; TEMP 36.8; O2SAT 100
[2020-04-17] MEDS: LACTATED RINGERS 1,000 ML 125 ML IV CONT (05:23)
[2020-04-17] MEDS: metroNIDAZOLE 250 MG TABLET 500 MG PO (09:04)
[2020-04-17 11:29] VITALS: BP 116/69; PULSE 58; RESP 17; TEMP 36.9; O2SAT 99
[2020-04-17] MEDS: PANTOPRAZOLE SODIUM IV 40 MG VIAL IV PUSH (11:51)
--- NOTE | 2020-04-17 12:31 | P.PNOB_ITS ---
OB - PN: Subj Subjective Date/time seen: 04/17/20 12:31 The patient reports improving pain. She had a large bowel movement and felt much better. She denies any nausea, vomiting, fever, chills. Her abdominal jenna n is improving. She did report some heartburn. OB - PN: Obj Data Labs CBC & Chem 7: 04/15/20 22:25 04/15/20 22:25 OB - PN A/P Assessment and Plan (1) Abdominal pain, left lower quadrant: Code(s): R10.32 - Left lower quadrant pain Status: Acute Assessment and Plan: This patient is a 34-year-old female who is about 10 days postop from a delivery. She had abdominal pain in the left lower quadrant. She had constipation. She has treat her constipation and now has improved pain. She does not appear to be infected. There was a fluid collection in the uterus. She has been receiving IV and oral antibiotics. We will continue the oral antibiotics outpatient. She will follow up this week (2) Constipation: Code(s): K59.00 - Constipation, unspecified Status: Acute Time Spent With Patient Time: Total time spent is greater than 50% in coordination of care (as documented) at patient's floor/unit and/or counseling patient: Exam Const: General: comfortable, no acute distress and alert Resp: Effort & Inspection: normal respiratory effort Auscultation: no crackles, no rales and no rhonchi Cardio: Rate: regular rate Heart sounds: no click, no murmurs and no rubs GI: Inspection: non-distended GI Palp: No Tenderness to palpation present (GI) Auscultation: normal bowel sounds Other: Incision - CDI Extrem: General: normal to inspection, no pedal edema and no calf tenderness
--- NOTE | 2020-04-17 12:35 | PM.DS ---
DS: Admitting Diagnosis Admitting Diagnosis Admitting Diagnosis: Constipation, abdominal pain DS: Discharge Diagnosis Discharge Diagnosis (1) Abdominal pain, left lower quadrant: Code(s): R10.32 - Left lower quadrant pain Status: Acute (2) Constipation: Code(s): K59.00 - Constipation, unspecified Status: Acute DS: Summary Hospital Course Hospital Course: this patient is a 34-year-old female who is 10 days postop from a delivery. She had left lower quadrant /pelvic pain. She had a small fluid collection the Endo major cavity. She was afebrile and had a normal white count on admission. she was treated with antibiotics, she was observed, later she reported constipation. She is treated for constipation her abdominal pain improved. She remained afebrile throughout her stay. She is ambulating tolerating p.o. and passing flatus Throughout her stay. she had no nausea vomiting fever chills. Time spent discussing smoking cessation with patient: more than 10 minutes Status at Discharge Functional status at discharge: independent ambulation Time Spent with Patient Time attestation: Total time spent providing and/or coordinating discharge services: Discharge Plan Discharge Consulting providers: Burak Holm Discharging Clinician: Monet Broderick Patient Disposition: Home, Self-Care Activity: pelvic rest Diet: as tolerated Wound Care Instructions: incision open to air Patient Instructions: Metronidazole (By mouth), Levofloxacin (By mouth), Pain Management (DC), Fall Prevention (DC), (DC), Antibiotic Form Stand Alone Forms: General Discharge Information Follow-up/Referrals: Monet Broderick MD [Physician] - Discharge Medications: New metronidazole 250 mg Tablet 500 mg PO BID Qty: 18 RF: 0 levofloxacin 500 mg Tablet 500 mg PO 1500 Qty: 9 RF: 0 Continued omeprazole 20 mg Capsule,Delayed Release(Dr/Ec) 20 mg PO DAILY RF: 0 Classic 28 mg iron- 800 mcg tablet 1 tablet PO DAILY RF: 0 polysaccharide iron complex 150 mg iron Capsule 150 mg PO BIDWM Qty: 30 RF: 0 hydrocodone-acetaminophen [[place]] 5-325 mg tablet 1 tablet PO Q4-6H PRN (Reason: pain) RF: 0 Discontinued cephalexin 500 mg capsule 500 mg PO BID RF: 0 Date of admission: 04/16/20 01:50 Primary Care Provider: PHYSICIAN,COMPRESSOR OPERATOR PORTABLE Admitting Provider: Monet Broderick Attending physician on admission: Monet Broderick Condition: Stable
[2020-04-17 12:51] LABS: Hematocrit 33.5 % (37.0-47.0); Hemoglobin 10.6 g/dL (12.0-15.0); Mean Corpuscular HGB Conc 31.6 g/dl (32-36); Mean Corpuscular Hemoglobin 26.4 pg (26-34); Mean Corpuscular Volume 83.3 fl (80-100); Mean Platelet Volume 9.7 fl (7.4-10.4); Platelet Count Result 325 k/mm3 (150-375); Red Blood Count 4.02 M/mm3 (4.2-5.4); Red Cell Distribution Width 13.7 % (11.5-14.5); White Blood Count 6.3 K/mm3 (4.5-10.0)
--- NOTE | 2020-04-17 14:25 | PC.NURSE ---
For discharge purposes this nurse used the leslyt with Mauro #[id number] to provide discharge instructions and answer any questions that the patient had.
== END 2020-04-17 15:00 | disposition home or self-care (01) ==
LOC: ANHED 04-16 02:13 → ANH2MED 04-16 05:51
PROVIDERS: Admitting Provider Obstetrics & Gynecology; Emergency Provider Emergency Medicine; Visit Provider Obstetrics & Gynecology
DX: O90.89 Other complications of the puerperium, not elsewhere classified (principal); R10.32 Left lower quadrant pain; R18.8 Other ascites; O99.63 Diseases of the digestive system complicating the puerperium; K59.00 Constipation, unspecified
CPT/HCPCS: 36415; 74177; 80053; 81001; 83690; 85025; 85027; 87086; 87088; 96361; 96374; 96375; 96376; 99285; A9270; C9113; G0378; G0379; J0131; J0696; J2270; J2405; J7030; J7120; Q9967

== ENCOUNTER 2020-12-30 07:11 | Emergency (ER) | payer OTHER, SELFPAY ==
--- NOTE | ~2020-12-30 | US_ITS ---
EXAMINATION: US OB <=14 wk fetus w TV EXAM DATE: 12/30/2020 09:02 INDICATION: Right lower abdominal pain. 1st trimester. TECHNIQUE: Pelvic obstetrical transabdominal and transvaginal sonogram was performed by a technologi . There are multiple grayscale and Doppler images available for interpretation. There are no long ier studies of this gestation for comparison. FINDINGS: Uterus measures 11.5 x 7.7 x 6.6 cm. There is intrauterine gestation sac. The 1.8 cm mean sac diameter corresponds to estimated gestational age by ultrasound of 6 weeks 4 days. The yolk sac and pole are not identified. There is no sonographic evidence of subchorionic hemorrhage. Rig ht ovary is identified and has lesion consistent with corpus luteal cyst. Left ovary is not identifie d. IMPRESSION: Intrauterine gestation sac, age by ultrasound 6 weeks 4 days. No pole or yolk sac i dentified at this time, cannot confirm viability. Consider 1-2 week follow-up ultrasound. Reviewed, dictated and finalized at location A. IMPRESSION: Intrauterine gestation sac, age by ultrasound 6 weeks 4 days. No fe gabbie pole or yolk sac identified at this time, cannot confirm viability. Consyassine r 1-2 week follow-up ultrasound.
--- NOTE | 2020-12-30 07:36 | ED.ABDPAIN ---
HPI - Abdominal Pain General Chief Complaint: Abdominal Pain Stated Complaint: abd pain Time Seen by Provider: 12/30/20 07:17 Source: patient Mode of arrival: ambulatory Limitations: language barrier (used stratus, video portable pinch riveter) History of Present Illness HPI narrative: Patient is a 36 year old female approximate GA 7 wk 4 dy who presents for evaluation of right lower abdominal and vaginal bleeding. She states she woke up this morning with right lower abdominal pain. She reports pain radiates to her lower back. She also reports a small amount of bleeding. She sees blood when she wipes but she denies passing clots. She denies fever or chills. She does reports dysuria and she has history of UTIs and kidney stones. She has not taken anything for pain. She found out she was 2 days ago at her PCP office, and her last menstrual period was 11/07/20. Pain rated 8/10. Related Data Allergies Allergy/AdvReac Type Severity Reaction Status Date / Time No Known Allergies Allergy Verified 12/30/20 08:03 Review of Systems Review of Systems: All systems reviewed & are unremarkable except as noted in HPI and below Constitutional: Constitutional: Denies chills and Denies fever(s) Cardiovascular: Cardiovascular: Denies chest pain Gastrointestinal: Gastrointestinal: Reports abdominal pain, Denies diarrhea, Reports nausea and Denies vomiting Genitourinary: Genitourinary: Reports abnormal vaginal bleeding, Denies hematuria and Reports dysuria Musculoskeletal: Musculoskeletal: Reports back pain PMF Past Medical History Medical History (Updated 12/30/20 @ 11:16 by Nahomi Kramer MD) Kidney stones Surgical History Surgical History (Updated 12/30/20 @ 07:42 by Nahomi Kraemr MD) H/O lithotripsy Social History Social History (Updated 12/30/20 @ 07:42 by Nahomi Kramer MD) Smoking status: Never smoker Alcohol intake: never Substance use: never Gender identity (if verbalized by the patient): Female Exam Const: General: no acute distress and alert Orientation/consciousness: patient oriented x3 Resp: Effort & Inspection: normal respiratory effort and no retractions Auscultation: clear to auscultation bilaterally Cardio: Rate: regular rate Rhythm: regular rhythm Heart sounds: no murmurs GI: GI Palp: Yes Soft to palpation, Yes Tenderness to palpation present (GI) (Diffuse) and No Guarding due to palpation present (GI) Auscultation: normal bowel sounds : General: Yes no CVA tenderness Other: deferred pelvic exam Skin: General skin exam: normal color Rashes: no rashes Neuro: General: patient oriented x3, moves all extremities and CN's II-XI intact bilaterally Psych: Mental Status: mental status grossly normal Affect: normal affect Course Reevaluation(s) Reevaluation #1: Patient is in on acute distress . She has not fever, leukocytosis to suggest appendicitis. Pain likely from her right ovarian cyst. She was evaluated by Dr. Deena Wilkins revenue liaison for OBGYN. She will follow up with patient in 1 week. I will start her on antibiotics. Date: 12/30/20 Time: 11:12 Vital Signs Vital signs: Vital Signs Temperature 97.3 F L 12/30/20 07:56 Pulse Rate 73 12/30/20 07:56 Respiratory Rate 18 12/30/20 07:56 Blood Pressure 116/69 12/30/20 07:56 Pulse Oximetry 100 12/30/20 07:56 Temperature 97.3 F L 12/30/20 07:56 Pulse Rate 78 12/30/20 11:38 Respiratory Rate 16 12/30/20 11:38 Blood Pressure 102/78 12/30/20 11:38 Pulse Oximetry 100 12/30/20 09:40 MDM - Abdominal Pain Lab Data Attestation: I reviewed the patient's lab results. Result diagrams: 12/30/20 07:49 12/30/20 07:49 Labs: Lab Results 12/30/20 12/30/20 12/30/20 Range/Units 07:49 07:49 07:49 WBC 6.9 (4.5-10.0) K/mm3 RBC 4.82 (4.2-5.4) M/mm3 Hgb 12.3 (12.0-15.0) g/dL Hct 39.4 (37.0-47.0) % MCV 81.7 (80-100) fl MCH 2
[2020-12-30 07:56] VITALS: BP 116/69; PULSE 73; RESP 18; TEMP 36.3; O2SAT 100
[2020-12-30 08:05] LABS: Basophils Absolute Auto 0.1 K/mm3 (0.0-0.1); Basophils Percent Auto 0.9 % (0.2-1.2); Eosinophils Absolute Auto 0.4 K/mm3 (0-0.3); Eosinophils Percent Auto 5.1 % (0-4.4); Hematocrit 39.4 % (37.0-47.0); Hemoglobin 12.3 g/dL (12.0-15.0); Immature Granulocyte Absolute 0.02 K/mm3 (0.00-0.031); Immature Granulocyte Percent A 0.3 % (0-0.5); Lymphocytes Percent Auto 21.9 % (18.3-44.2); Mean Corpuscular HGB Conc 31.2 g/dl (32-36); Mean Corpuscular Hemoglobin 25.5 pg (26-34); Mean Corpuscular Volume 81.7 fl (80-100); Mean Platelet Volume 10.4 fl (7.4-10.4); Monocytes Absolute Auto 0.7 K/mm3 (0.1-0.6); Monocytes Percent Auto 9.5 % (2.6-8.5); Neutrophils Absolute Auto 4.3 K/mm3 (1.3-6.7); Neutrophils Percent Auto 62.3 % (45.5-73.1); Platelet Count Result 247 k/mm3 (150-375); Red Blood Count 4.82 M/mm3 (4.2-5.4); Red Cell Distribution Width 15.6 % (11.5-14.5); White Blood Count 6.9 K/mm3 (4.5-10.0)
[2020-12-30 08:14] LABS: Add Urine Microscopic? YES; Appearance Urine Cloudy (Clear); Bacteria Urine 1+ /hpf; Bilirubin Urine Negative (Negative); Blood Urine 2+ (Negative); Color Urine Yellow (Yellow); Glucose Urine UA Negative (Negative); Ketones Urine Trace mg/dL (Negative); Leukocyte Esterase Ur 1+ LEU/UL (Negative); Mucus Urine Few /lpf; Nitrate Urine Negative (Negative); Protein Urine Negative (Negative); RBC Urine 0-2 /hpf (0-2); Specific Grav Ur 1.019 (1.001-1.035); Squamous Epithelial Cell Urine Many /hpf (Few); Urobilinogen Urine Negative mg/dL (<2.0); WBC Urine 16-20 /hpf
[2020-12-30 08:15] LABS: Alanine Aminotransferase 69 U/L (4-35); Albumin Level 4.2 g/dL (3.5-5.1); Alkaline Phosphatase 111 U/L (38-126); Anion Gap 6 mmol/L (8-16); Aspartate Amino Transferase 62 U/L (14-36); Bilirubin,Total 0.3 mg/dL (0.2-1.3); Blood Urea Nitrogen 10 mg/dL (7-17); Calcium 8.6 mg/dL (8.4-10.2); Carbon Dioxide 24 mmol/L (22-30); Chloride 107 mmol/L (98-107); Estimated CRCL calculation 116 ml/min; Estimated Glomerular Filt Rate > 60; Glucose 119 mg/dL (65-105); Lipase 98 U/L (23-300); Potassium 3.6 mmol/L (3.4-5.0); Sodium 137 mmol/L (137-145)
[2020-12-30 08:22] VITALS: BP 115/65; PULSE 66
[2020-12-30 08:25] VITALS: BP 110/70; PULSE 83
[2020-12-30 08:26] VITALS: BP 109/71; PULSE 76
[2020-12-30 09:40] VITALS: BP 102/70; PULSE 67; RESP 17; O2SAT 100
--- NOTE | 2020-12-30 11:00 | WPDCN ---
Assessment and Plan Assessment and plan (1) with uncertain viability: Code(s): O36.80X0 - with inconclusive viability, not applicable or unspecified Status: Acute Additional Plan US showed gestational sac measuring 1.8cm without a yolk sac or pole This finding is suspicious for, however, not diagnostic of failure Results discussed with patient and Pain subsided with medication May take Tylenol 1000mg every 6 hours as needed No further evidence of bleeding and cervix closed on bimanual exam Rh positive Patient may be discharged home in stable condition Recommend close follow up as outpatient Patient instructed to call my office to schedule visit next week Recommend repeat BHCG and US in 1 week Emergency precautions reviewed with patient Patient implied an understanding All questions and concerns addressed , Dio?s, phone number is [phone] Thank you very much for this consult. I look forward to taking care of this patient in the outpatient setting. HPI Data of Consult Date/Time: 12/30/20 11:00 Primary Care Provider: UNKNOWN,DOCTOR Consult Narrative Narrative: History obtained with use of [email or web address] dairy bar manager services. Lip Cutter And Scorer was Prudencio (ID# [id number]). The patient is a 35yo LMP 11/07/20 who presented to the emergency department with onset of RLQ pain and vaginal spotting. Patient reports noticing spotting on toilet tissue early this AM shortly after she woke up. Around same time, she reports onset of RLQ pain, prompting visit to ED. Patient received pain medication while in the ED and reports alleviation of pain. She reported a mild headache as well as breast tenderness as well. Denies any nausea or vomiting. She has not yet established care during this and does not have a primary CENTRAL STERILIZATION TECHNICIAN. She has a history of a C/S x 1 in 04/2020 here at [facility]. Review of Systems Review of Systems: All systems reviewed & are unremarkable except as noted in HPI and below Constitutional: Constitutional: Reports as per HPI and Reports no additional constitutional complaints Gastrointestinal: Gastrointestinal: Reports as per HPI, Reports no additional gastrointestinal complaints, Denies nausea and Denies vomiting Genitourinary: Genitourinary: Reports no additional female genitourinary complaints, Reports as per HPI and Reports pelvic pain PMFSH Past Medical History Medical History (Updated 04/12/21 @ 12:05 by Deena Wilkins MD) Hx of gastroesophageal reflux (GERD) Kidney stones Surgical History Surgical History (Updated 01/02/21 @ 11:58 by Deena Wilkins MD) H/O lithotripsy History of primary section Social History Social History Smoking status: Never smoker Alcohol intake: never Substance use: never Gender identity (if verbalized by the patient): Female Meds Home Medications and Allergies Home Medications Medication Instructions Recorded Confirmed Type nitrofurantoin monohyd/m-cryst 100 mg PO Q12H 3 Days #6 cap 12/30/20 Rx [Macrobid] Allergies Allergy/AdvReac Type Severity Reaction Status Date / Time No Known Allergies Allergy Verified 12/30/20 08:03 Exam Const: General: cooperative, healthy appearing, comfortable and no acute distress GI: Inspection: non-distended GI Palp: Yes Soft to palpation, No Tenderness to palpation present (GI) and No Guarding due to palpation present (GI) : Bimanual exam- vagina & uterus: normal bimanual exam and enlarged (approx. 6w size) Bimanual Exam- Adnexa, other: normal adnexae Results Labs CBC & Chem 7: 12/30/20 07:49 12/30/20 07:49
[2020-12-30 11:38] VITALS: BP 102/78; PULSE 78; RESP 16
== END 2020-12-30 11:39 | disposition home or self-care (01) ==
PROVIDERS: Emergency Provider General Practice
DX: O20.0 Threatened abortion (principal); O23.41 Unspecified infection of urinary tract in pregnancy, first trimester; Z3A.01 Less than 8 weeks gestation of pregnancy; Z87.442 Personal history of urinary calculi
CPT/HCPCS: 36415; 76801; 76817; 80053; 81001; 81025; 83690; 84702; 85025; 85461; 87070; 87086; 87088; 87491; 87591; 87808; 96374; 99284; J0131

== ENCOUNTER 2021-01-17 10:23 | Outpatient (CLI) | payer OTHER, SELFPAY ==
--- NOTE | ~2021-01-17 | US_ITS ---
EXAMINATION: US OB <= 14 weeks fetus DATE: 01/17/2021 11:18 INDICATION: Threatened miscarriage. Vaginal bleeding. TECHNIQUE: Real-time transabdominal obstetric ultrasound. FINDINGS: Comparison ultrasound dated 12/30/2020 The uterus measures 12.9 x 6 x 8.4 cm. There is an intrauterine gestational sac, with pole iden tified. The crown rump length measures 1.98 cm, which correlates with a estimated gestational age of 8 weeks 4 days. heart tones are identified measuring 159 bpm. There is a small subchorionic hemorrhage measuring up to 1.7 cm maximum dimension. The ovaries are within normal limits. No adnexal masses or fluid collections. IMPRESSION: 1. SL IUP with an EGA of 8 weeks, 4 days (EDC by current ultrasound of 08/25/2021). 2: Small subchorionic hemorrhage. Reviewed, dictated and finalized at location B. IMPRESSION: 1. SL IUP with an EGA of 8 weeks, 4 days (EDC by current ultrasound of 08/25/20). 2: Small subchorionic hemorrhage.
== END 2021-01-17 10:24 | disposition home or self-care (01) ==
LOC: ANHIMG 10:26
PROVIDERS: Visit Provider Student in an Organized Health Care Education/Training Program
DX: O20.9 Hemorrhage in early pregnancy, unspecified (principal); O20.0 Threatened abortion; Z3A.01 Less than 8 weeks gestation of pregnancy
CPT/HCPCS: 76801

== ENCOUNTER 2021-01-31 04:22 | Emergency (ER) | payer OTHER, SELFPAY ==
--- NOTE | ~2021-01-31 | US_ITS ---
EXAMINATION: US OB <=14 wk fetus w TV DATE: 01/31/2021 06:19 INDICATION: Urinary tract infection during first trimester . TECHNIQUE: Real-time pelvic ultrasound utilizing both a transvaginal and transabdominal probe was pe rformed. The interpreting radiologist was not present for the study. COMPARISON: 01/17/2021 FINDINGS: The uterus measures 12.5 x 8.2 x 11.6 cm. There is an intrauterine gestational sac. A pole is identified. The crown rump length measures 2.1 cm, which correlates with an estimated gestational age of 8 weeks and 5 days. No evident heart motion consistent with demise. The right ovary measures 3.5 x 3.0 x 2.2 cm. The left ovary measures 2.9 x 2.5 x 2.3 cm. Vascular silvia w identified in both ovaries. There is no free fluid in the pelvis. IMPRESSION: 1. Single intrauterine pole without evident heart motion consistent with demise wit hout significant change in size of the pole since the prior study. Reviewed, dictated and finalized at location A. IMPRESSION: 1. Single intrauterine pole without evident heart motion consistent with demise without significant change in size of the pole since t he prior study.
[2021-01-31 04:36] VITALS: BP 144/63; PULSE 67; RESP 16; TEMP 36.6; O2SAT 99
--- NOTE | 2021-01-31 04:46 | ED.ABDPAIN ---
HPI - Abdominal Pain General Chief Complaint: Abdominal Pain Stated Complaint: abd pain Time Seen by Provider: 01/31/21 04:45 Source: patient Mode of arrival: ambulatory Limitations: no limitations History of Present Illness HPI narrative: Patient is a 36-year-old female G3, P2 currently 12 weeks dated by last menstrual period and ultrasound, who presents for evaluation of dysuria, frequency suprapubic pressure and left flank pain. Patient denies any vaginal bleeding or discharge. She denies fever or chills. She does report nausea with 3 episodes of nonbloody, nonbilious emesis today. No cough, chest pain or shortness of breath. No recent intercourse. Patient follows with [employer] [employer] Dr. Deena Wilkins. Patient recently diagnosed with gastritis started on an antacid but had been having some reflux symptoms. Those are currently resolved. Related Data Allergies Allergy/AdvReac Type Severity Reaction Status Date / Time No Known Allergies Allergy Verified 01/31/21 04:57 Review of Systems Review of Systems: Narrative: CONSTITUTIONAL: Denies fever, chills, or sweats. EYES: Denies visual changes, redness, or discharge. ENT: Denies rhinorrhea, congestion, sore throat, or otalgia. CARDIOVASCULAR: Denies chest pain, palpitations, or edema. RESPIRATORY: Denies cough or dyspnea. GASTROINTESTINAL: Reports suprapubic pain, nausea, vomiting, denies diarrhea GENITOURINARY: Reports dysuria, hematuria, frequency SKIN: Denies rash or itching. MUSCULOSKELETAL: Denies back pain, joint pain, or myalgia. NEUROLOGIC: Denies headache, numbness, or weakness. Exam Narrative: Exam Narrative: GENERAL: Awake, alert, conversant HEAD: Normocephalic, atraumatic. EYES: PERRLA and EOMI. ENT: Nares clear, no rhinorrhea or epistaxis. Mucous membranes moist. NECK: Supple. CHEST: No respiratory distress, breathing even and non labored HEART: Regular rate, sinus rhythm ABDOMEN:Non distended, suprapubic tenderness, left CVA tenderness EXTREMITIES: Normal range of motion. No edema. SKIN: Warm, dry, no rash. NEURO:No focal deficits. Alert and oriented x3 Course Vital Signs Vital signs: Vital Signs Temperature 36.6 C 01/31/21 04:36 Pulse Rate 67 01/31/21 04:36 Respiratory Rate 16 01/31/21 04:36 Blood Pressure 144/63 H 01/31/21 04:36 Pulse Oximetry 99 01/31/21 04:36 Temperature 36.6 C 01/31/21 04:36 Pulse Rate 65 01/31/21 04:50 Respiratory Rate 16 01/31/21 04:50 Blood Pressure 110/68 01/31/21 04:50 Pulse Oximetry 97 01/31/21 04:50 MDM - Abdominal Pain MDM Narrative Medical decision making narrative: Patient presented for evaluation of dysuria, urgency, suprapubic pain. The time of assessment, ABCs are intact and vital signs are stable. Patient is afebrile. No tachycardia. No hypotension. Laboratory results show no leukocytosis. No anemia. No electrolyte derangement or acute kidney injury. Urinalysis is concerning for urinary tract infection especially given the patient's symptoms. I obtained a bedside ultrasound cannot appreciate cardiac activity of the fetus, very small given dates on bedside ultrasound thus obtained a formal ultrasound which showed a fetus of 8 weeks 5 days without cardiac activity. This is concerning for missed . Patient and family were updated at bedside regarding the results of the ultrasound and blood work. I did contact [employer] [employer] Dr. Lewis who is on-call for Dr. Wilkins to relay the results of the patient's visit in the emergency department today and need for close follow-up. Patient is not having any bleeding, does not require RhoGam. Other vital signs are stable. She was given her first dose of antibiotics in the ER. No colicky flank pain or history of nephrolithiasis to be concerning for kidney stone. Patient feels much improved at the times of reassessments, thus CT abdomen and pelvis was not obtained. Patient was discharged home with family with [employer] [employer] follow-up. Differential D
[2021-01-31 04:50] VITALS: BP 110/68; PULSE 65; RESP 16; O2SAT 97
[2021-01-31] MEDS: SODIUM CHLORIDE 0.9% IV 1,000 ML 999 ML IV CONT (05:28)
[2021-01-31] MEDS: ONDANSETRON INJ 4 MG/2 ML VIAL IV PUSH (05:29)
[2021-01-31 05:44] LABS: Basophils Absolute Auto 0.1 K/mm3 (0.0-0.1); Basophils Percent Auto 0.7 % (0.2-1.2); Eosinophils Absolute Auto 0.6 K/mm3 (0-0.3); Eosinophils Percent Auto 6.5 % (0-4.4); Hematocrit 38.7 % (37.0-47.0); Hemoglobin 12.3 g/dL (12.0-15.0); Immature Granulocyte Absolute 0.03 K/mm3 (0.00-0.031); Immature Granulocyte Percent A 0.3 % (0-0.5); Lymphocytes Absolute Auto 1.47 K/mm3 (0.9-3.2); Lymphocytes Percent Auto 16.4 % (18.3-44.2); Mean Corpuscular HGB Conc 31.8 g/dl (32-36); Mean Corpuscular Hemoglobin 26.1 pg (26-34); Mean Corpuscular Volume 82.2 fl (80-100); Mean Platelet Volume 11.1 fl (7.4-10.4); Monocytes Absolute Auto 0.8 K/mm3 (0.1-0.6); Monocytes Percent Auto 8.7 % (2.6-8.5); Neutrophils Percent Auto 67.4 % (45.5-73.1); Platelet Count Result 274 k/mm3 (150-375); Red Blood Count 4.71 M/mm3 (4.2-5.4); Red Cell Distribution Width 15.1 % (11.5-14.5); White Blood Count 8.9 K/mm3 (4.5-10.0)
[2021-01-31 05:51] LABS: Add Urine Microscopic? YES; Appearance Urine Cloudy (Clear); Bacteria Urine Trace /hpf; Bilirubin Urine Negative (Negative); Blood Urine 1+ (Negative); Color Urine Yellow (Yellow); Glucose Urine UA Negative (Negative); Ketones Urine Negative (Negative); Leukocyte Esterase Ur 3+ LEU/UL (Negative); Mucus Urine Rare /lpf; Nitrate Urine Negative (Negative); Protein Urine Negative (Negative); Squamous Epithelial Cell Urine Few /hpf (Few); Urobilinogen Urine Negative mg/dL (<2.0); WBC Urine >75 /hpf
[2021-01-31 05:55] LABS: Alanine Aminotransferase 36 U/L (4-35); Albumin Level 4.1 g/dL (3.5-5.1); Alkaline Phosphatase 126 U/L (38-126); Anion Gap 7 mmol/L (8-16); Aspartate Amino Transferase 55 U/L (14-36); Bilirubin,Total 0.4 mg/dL (0.2-1.3); Blood Urea Nitrogen 8 mg/dL (7-17); Calcium 9.3 mg/dL (8.4-10.2); Carbon Dioxide 22 mmol/L (22-30); Chloride 108 mmol/L (98-107); Estimated CRCL calculation 146 ml/min; Estimated Glomerular Filt Rate > 60; Glucose 103 mg/dL (65-105); Lipase 103 U/L (23-300); Potassium 3.8 mmol/L (3.4-5.0); Sodium 137 mmol/L (137-145)
--- NOTE | 2021-01-31 06:09 | PC.NURSE ---
Pt still in ultrasound.
--- NOTE | 2021-01-31 06:15 | PC.NURSE ---
Report received from SANDRINE Rasmussen. Pt returns from US, states is feeling. Explained need for IV ABX. Verb understanding. Room darkened for patient comfort.
[2021-01-31 07:17] VITALS: BP 118/75; PULSE 72; RESP 16; O2SAT 100
== END 2021-01-31 07:19 | disposition home or self-care (01) ==
PROVIDERS: Emergency Provider Emergency Medicine; PCP Student in an Organized Health Care Education/Training Program
DX: O02.1 Missed abortion (principal); N12 Tubulo-interstitial nephritis, not specified as acute or chronic
CPT/HCPCS: 36415; 76801; 76817; 80053; 81001; 83690; 84702; 85025; 85461; 87086; 87088; 96365; 96367; 96375; 99284; J0131; J0696; J2405; J7030

== ENCOUNTER 2021-02-15 02:15 | Day surgery (SDC) | payer OTHER, SELFPAY ==
--- NOTE | 2021-02-14 13:07 | WPDANESEPPF ---
Anes - Initial Pre Proc Eval Procedure: Operation Date: 02/15/21 12:00 Proposed Procedures p Suction Dilatation And Curettage - Deena Wilkins MD Date/Time: 02/14/21 13:07 Surgeon: Deena Wilkins MD Pre Op Diagnosis: missed ab Patient Data Age: 35 Gender: F Height: Weight: Allergies Allergy/AdvReac Type Severity Reaction Status Date / Time No Known Allergies Allergy Verified 02/15/21 10:14 Home Medications Medication Instructions Recorded Confirmed Type omeprazole 20 mg PO DAILY PRN 02/15/21 02/15/21 History Patient hx anesthesia problems: none Family hx anesthesia problems: none PMFSH Past Medical History Medical History Abdominal pain, left lower quadrant Acid reflux Anemia Blood transfusion without reported diagnosis delivery delivered 04/09/20, c/s, full term, male, 7#12 Failure to progress in labor heart rate decelerations affecting management of mother H/O nephrolithotomy with removal of calculi Hx of gastroesophageal reflux (GERD) Kidney stones Missed 2010 No significant past medical history Surgical History Surgical History H/O lithotripsy History of primary section Previous section 2019 Family History Family History Other Unknown family medical history Social History Social History Smoking status: Never smoker Alcohol intake: never Substance use: never Gender identity (if verbalized by the patient): Female Spiritual care concerns: No Agree to blood products: Yes Anes - Eval Final PreProcedure Day of Procedure 02/14/21 13:07 Patient weight: obese Heart: regular rate and rhythm Lungs: clear to auscultation and normal air movement Airway: Mallampati scale class II Neurological: alert and oriented Last oral intake: >/= 8 hours ASA classification: II Emergent: no Anesthetic plan: proceed Anesthesia type and monitoring: general GIVS and standard monitoring Informed Consent: The patient's anesthetic plan and its attendant risks and benefits were discussed with the patient/family/POA. Questions were solicited and answers provided to the satisfaction of the patient/family/POA.
--- NOTE | 2021-02-14 16:35 | PM.IMHP ---
H&P: HPI History of Present Illness Date/Time: 02/14/21 16:35 The patient is a 35yo LMP 11/07/20 who was recently diagnosed on 01/31/21 with a missed at approx. 8 weeks 5 days gestation. Patient currently reports mild abdominal pain and cramping. She experienced vaginal bleeding earlier during the , however, none recently. Denies any passage of clot or tissue. Lengthy discussion had with patient regarding management options, including expectant, medical, and surgical. Patient would like to proceed with surgical management. Chief Complaint: missed Review of Systems Review of Systems: All systems reviewed & are unremarkable except as noted in HPI and below Constitutional: Constitutional: Reports as per HPI, Reports no additional constitutional complaints, Denies chills, Denies fever(s), Denies headache(s) and Denies night sweats Eyes: Eyes: Reports as per HPI and Reports no additional eye complaints ENT: Reports system reviewed and no additional complaints, except as documented, Reports as per HPI, Reports Normal hearing present and Denies headache(s) Cardiovascular: Cardiovascular: Reports as per HPI, Reports no additional cardiovascular complaints, Denies chest pain and Denies dyspnea Respiratory: Respiratory: Reports as per HPI, Reports no additional respiratory complaints, Denies cough and Denies dyspnea Gastrointestinal: Gastrointestinal: Reports as per HPI, Reports no additional gastrointestinal complaints, Reports abdominal pain, Denies change in bowel habits, Denies change in stool character, Reports nausea and Denies vomiting Genitourinary: Genitourinary: Reports no additional female genitourinary complaints, Reports as per HPI, Denies abnormal vaginal bleeding, Denies genital lesions, Denies hot flashes, Denies dyspareunia, Denies pelvic pain, Denies sexual dysfunction, Denies urinary incontinence, Denies vaginal discharge, Denies vaginal dryness and Denies vaginal odor Musculoskeletal: Musculoskeletal: Reports no additional musculoskeletal complaints and Reports as per HPI Integumentary/Breasts: Skin/Breast: Reports system reviewed and no additional complaints, except as docu, Reports as per HPI, Denies breast pain and Denies nipple discharge Neurologic: Reports system reviewed and no additional complaints, except as documented, Reports as per HPI, Reports Normal hearing present and Denies headache(s) Psychiatric: Psychiatric: Reports no additional psychiatric complaints, Reports as per HPI, Denies anxiety and Denies depression Endocrine: Endocrine: Reports no additional endocrine complaints and Reports as per HPI Hematologic/Lymphatic: Hematologic/Lymphatic: Reports no additional hematologic/lymphatic complaints and Reports as per HPI Allergic/Immunologic: Allergic/Immunologic: Reports no additional allergic/immunologic complaints and Reports as per HPI PMFSH Past Medical History Medical History Abdominal pain, left lower quadrant Acid reflux Anemia Blood transfusion without reported diagnosis delivery delivered 04/09/20, c/s, full term, male, 7#12 Failure to progress in labor heart rate decelerations affecting management of mother H/O nephrolithotomy with removal of calculi Hx of gastroesophageal reflux (GERD) Kidney stones Missed 2010 No significant past medical history Surgical History Surgical History H/O lithotripsy History of primary section Previous section 2019 Family History Family History Other Unknown family medical history Social History Social History Smoking status: Never smoker Alcohol intake: never Substance use: never Gender identity (if verbalized by the patient): Female Spiritual care concerns: No Agr
[2021-02-15 10:25] VITALS: BMI 31.4
[2021-02-15 10:26] VITALS: BP 118/84; PULSE 77; RESP 18; TEMP 37; O2SAT 100
[2021-02-15] MEDS: ACETAMINOPHEN 500 MG TABLET 1000 MG PO (10:41)
[2021-02-15] MEDS: LACTATED RINGERS 1,000 ML 30 ML IV CONT (10:55)
--- NOTE | 2021-02-15 11:05 | SUR.PREOP ---
1105- Patient's health history, questions and concerns for procedure, and consent reviewed with assistance of [employer] extension educator- Russell, [id number].
--- NOTE | 2021-02-15 11:39 | WPDHPUPDATE1 ---
History and Physical Update Update Date/Time: 02/15/21 11:39 History and Physical has been reviewed, including an updated exam of the patient. There are NO changes in the patient's condition. Risks, benefits, and alternatives have been discussed and questions answered. Patient agrees to proceed with procedure.
--- NOTE | 2021-02-15 11:43 | PM.PROC ---
Procedure Note - Detailed Date of procedure: 02/15/21 Pre-op diagnosis: missed ab Post-op diagnosis: same Procedure performed: Suction dilation and curettage Description of procedure: The patient was taken to the operating room where she self transferred to the operating room table. Patient was placed in dorsal supine position. Anesthesia was administered and found to be adequate. The patient was repositioned in dorsal lithotomy position with the use of Jairo stirrups. The patient was prepped and draped in the usual sterile fashion. A red rubber catheter was used to drain the bladder of 150 cc of light yellow urine. A bivalve speculum was inserted into vagina. The cervix was well visualized. The anterior lip of the cervix was grasped with a single-tooth tenaculum. A paracervical block was performed with 1% lidocaine. 5 cc of lidocaine was administered on both sides for a total of 10 cc. The uterus was sounded to 8cm. The cervix was then serially dilated to accommodate a size 8 rigid curette. The curette was introduced into the endometrial cavity and connected to the suction tubing. The suction aspirator was then activated and the curette was gently rotated clearing the cavity of all products of conception. Three passes with the rigid curette were made. A gritty texture was noted and the procedure was deemed complete. The tenaculum was removed. The tenaculum puncture sites were noted to have minimal oozing. These sites were made hemostatic with silver nitrate. Excellent hemostasis was noted. The vagina was then cleansed and dried and the speculum was removed. The remainder the patient was cleansed and dried. She was taken out of the dorsal lithotomy position and awakened from anesthesia without difficulty. She was transferred to recovery room in stable condition. All sponge and instrument counts were correct at the end of the procedure. The evacuated products of conception were prepared to be sent to pathology for chromosome analysis. The patient tolerated the procedure well. Anesthesia: MAC Surgeon: Deena Wilkins MD Estimated blood loss (mL): 10 IV fluids (mL): 400 Urine output (mL): 150 Drains: No Packing: No Pathology: yes (products of conception) Complications: No immediate complications Condition: stable Disposition: same day Findings: Moderate amount of products of conception
[2021-02-15] MEDS: KETOROLAC 30 MG/ML VIAL (*BKC) IV PUSH (12:19)
[2021-02-15 12:33] VITALS: BP 100/67; PULSE 79; RESP 16; O2SAT 97
[2021-02-15 13:00] VITALS: BP 109/58; PULSE 67; RESP 16
[2021-02-15 13:25] VITALS: BP 105/65; PULSE 75; RESP 16
== END 2021-02-15 13:39 | disposition home or self-care (01) ==
PROVIDERS: PCP Student in an Organized Health Care Education/Training Program; Visit Provider Student in an Organized Health Care Education/Training Program
PROC: (CPT 59820; principal; 2021-02-15 12:00)
DX: O02.1 Missed abortion (principal); K21.9 Gastro-esophageal reflux disease without esophagitis; D64.9 Anemia, unspecified
CPT/HCPCS: 59820; 88305; A9270; J1100; J1885; J2250; J2405; J2704; J3010; J7120

== ENCOUNTER 2021-02-26 18:29 | Emergency (ER) | payer OTHER, SELFPAY ==
[2021-02-26] VITALS (13 sets, daily range): BP systolic 121–129; BP diastolic 76–86; PULSE 64–84; RESP 15–30; TEMP 36.8; O2SAT 92–100
--- NOTE | ~2021-02-26 | CT_ITS ---
EXAMINATION: CT abdomen pelvis w con DATE: 02/26/2021 20:13 INDICATION: Lower abdominal pain. D&C on 02/15/2021 TECHNIQUE: Computed tomography (CT) of the abdomen and pelvis was performed with 100 cc Omnipaque 350 intravenous contrast. Automated exposure control and iterative reconstruction technique were employe d. Exam dose: 575.80 mGy-cm total exam DLP. COMPARISON: 01/31/2021 obstetrical ultrasound 04/11/2020 CT abdomen pelvis FINDINGS: Patchy groundglass densities and atelectasis in both lower lung zones. Cholelithiasis. No gallbladder wall thickening or pericholecystic fluid or fat stranding. Diffuse hepatic steatosis. Approximately 1.8 cm hypoattenuating lesion of the left very posterior lat eral aspect of the liver, previously reported to be a hemangioma The liver is otherwise unremarkable. No other hepatic space-occupying mass lesion. No bile duct or pa ncreatic duct dilatation. No pancreatic mass lesion or calcification. Normal morphology of the adrenal glands. No renal mass lesion or scarring is evident. No urinary tract calculus or hydroureteronephrosis. Uterine enlargement; the uterus measures approximately 14 cm height, 7.7 cm anteroposterior dimension . There is moderate soft tissue density and/or fluid within the endometrial cavity. Peripherally enhancing 12 mm right ovarian cyst. The adnexal areas are otherwise unremarkable. Normal caliber of the abdominal aorta. No intraperitoneal or retroperitoneal or pelvic mass lesion or adenopathy or ascites. Normal appendix. No bowel obstruction, bowel wall thickening, pneumatosis or intraperitoneal free air . Included skeletal structures are unremarkable. IMPRESSION: Uterine enlargement with moderate fluid and/or soft tissue density within the endometria l cavity Cholelithiasis Lateral segment left hepatic hemangioma Reviewed, dictated and finalized at Location A. Reviewed, dictated and finalized at location A. IMPRESSION: Uterine enlargement with moderate fluid and/or soft tissue density within the endometrial cavity Cholelithiasis Lateral segment left hepatic hemangioma
[2021-02-26 18:59] LABS: Basophils Absolute Auto 0.1 K/mm3 (0.0-0.1); Basophils Percent Auto 0.6 % (0.2-1.2); Eosinophils Absolute Auto 0.4 K/mm3 (0-0.3); Eosinophils Percent Auto 4.5 % (0-4.4); Hematocrit 35.3 % (37.0-47.0); Hemoglobin 11.3 g/dL (12.0-15.0); Immature Granulocyte Absolute 0.04 K/mm3 (0.00-0.031); Immature Granulocyte Percent A 0.5 % (0-0.5); Lymphocytes Absolute Auto 1.82 K/mm3 (0.9-3.2); Lymphocytes Percent Auto 22.2 % (18.3-44.2); Mean Corpuscular Volume 81.1 fl (80-100); Monocytes Absolute Auto 0.6 K/mm3 (0.1-0.6); Monocytes Percent Auto 7.6 % (2.6-8.5); Neutrophils Absolute Auto 5.3 K/mm3 (1.3-6.7); Neutrophils Percent Auto 64.6 % (45.5-73.1); Platelet Count Result 259 k/mm3 (150-375); Red Blood Count 4.35 M/mm3 (4.2-5.4); Red Cell Distribution Width 14.6 % (11.5-14.5); White Blood Count 8.2 K/mm3 (4.5-10.0)
[2021-02-26 19:08] LABS: Alanine Aminotransferase 75 U/L (4-35); Albumin Level 4.3 g/dL (3.5-5.1); Alkaline Phosphatase 115 U/L (38-126); Anion Gap 11 mmol/L (8-16); Aspartate Amino Transferase 70 U/L (14-36); Bilirubin,Total 0.3 mg/dL (0.2-1.3); Blood Urea Nitrogen 11 mg/dL (7-17); Calcium 9.6 mg/dL (8.4-10.2); Carbon Dioxide 23 mmol/L (22-30); Chloride 109 mmol/L (98-107); Estimated CRCL calculation 78 ml/min; Estimated Glomerular Filt Rate > 60; Glucose 137 mg/dL (65-105); Potassium 3.4 mmol/L (3.4-5.0); Sodium 143 mmol/L (137-145)
--- NOTE | 2021-02-26 19:14 | ED.GENADULT ---
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 Patient states that she passed a large blood clot approximately an hour ago followed by a large amount of dark red vaginal bleeding. She states that she has a history of having a D&C performed by Dr. Wilkins on 02/15/2021 she states that starting yesterday she had a small amount of light bleeding and has a follow-up appointment scheduled for Saturday states she did begin to develop some abdominal pain last night that is worse today with pain in the bilateral lower abdomen described as crampy in nature she took Tylenol earlier today for the pain she denies any fevers or chills chest pain shortness of breath or any other symptoms Related Data Home Medications Medication Instructions Recorded Confirmed omeprazole 20 mg PO DAILY PRN 02/15/21 02/15/21 Allergies Allergy/AdvReac Type Severity Reaction Status Date / Time No Known Allergies Allergy Verified 02/15/21 10:14 Review of Systems Review of Systems: Narrative: Gen.: Denies fevers or chills ENT: Denies congestion Respiratory: Denies shortness of breath or cough CV: Denies chest pain or palpitations GI: Reports lower abdominal pain. Denies nausea, emesis or diarrhea see HPI Musculoskeletal: Denies back pain or muscle pain Neuro: Denies numbness, tingling, weakness or focal weakness Skin: Denies rash Except as documented, all other systems reviewed and negative [facility] Past Medical History Medical History Abdominal pain, left lower quadrant Acid reflux Anemia Blood transfusion without reported diagnosis delivery delivered 04/09/20, c/s, full term, male, 7#12 Failure to progress in labor heart rate decelerations affecting management of mother H/O nephrolithotomy with removal of calculi Hx of gastroesophageal reflux (GERD) Kidney stones Missed 2010 No significant past medical history Surgical History Surgical History H/O lithotripsy History of primary section Previous section 2019 Family History Family History Other Unknown family medical history Social History Social History Smoking status: Never smoker Alcohol intake: never Substance use: never Gender identity (if verbalized by the patient): Female Spiritual care concerns: No Agree to blood products: Yes Exam Narrative: Exam Narrative: APPEARANCE: No acute distress, nontoxic, resting in bed HEENT: Normocephalic, atraumatic, OMM RESPIRATORY: No respiratory distress, clear to auscultation bilaterally with no rhonchi wheezing or rales CARDIOVASCULAR: RRR s murmur ABDOMINAL: Soft nondistended tender palpation right lower quadrant left lower quadrant no tenderness right lower quadrant no rebound or guarding : Normal external exam small amount of dark maroon blood with clots in vaginal canal cervix is closed bilateral adnexal tenderness no cervical motion tenderness MUSCULOSKELETAl: Moves all extremities. No clubbing, cyanosis or edema. NEURO: Awake and alert. Following commands, speech normal, no focal deficits SKIN:: Warm, dry. Normal Color PSYCHIATRIC: Normal affect/mood Course Course Emergency Course: Called and discussed with Dr. Wilkins presentation and work-up discussed CT results this time feels patient may discharge to follow-up as an outpatient patient is scheduled for an appointment on Saturday Patient states that they are feeling much better at this time. States abdominal pain has resolved. Repeat abdominal exam shows the patient's abdomen to be soft and nontender. Discussed wit
[2021-02-26] MEDS: SODIUM CHLORIDE 0.9% IV 1,000 ML 999 ML IV CONT (19:23)
[2021-02-26] MEDS: MORPHINE SULFATE (*CRX) 2 MG/ML INJ IV PUSH (19:42)
== END 2021-02-26 21:55 | disposition home or self-care (01) ==
PROVIDERS: Emergency Medicine; Emergency Provider Emergency Medicine; PCP Student in an Organized Health Care Education/Training Program
DX: N93.8 Other specified abnormal uterine and vaginal bleeding (principal); R10.32 Left lower quadrant pain; R10.31 Right lower quadrant pain; K21.9 Gastro-esophageal reflux disease without esophagitis; D64.9 Anemia, unspecified; Z87.442 Personal history of urinary calculi; D18.09 Hemangioma of other sites
CPT/HCPCS: 36415; 74177; 80053; 84702; 85025; 86850; 86900; 86901; 96374; 99284; J2270; J7030; Q9967

== ENCOUNTER 2021-03-03 09:11 | Outpatient (CLI) | payer OTHER, SELFPAY ==
--- NOTE | ~2021-03-03 | US_ITS ---
EXAMINATION: US pelvic complete w TV DATE: 03/03/2021 09:47 INDICATION: Missed with recent D&C procedure. Comparison:01/31/2021 TECHNIQUE: Multiple transabdominal and endovaginal sonographic images of the pelvis performed. FINDINGS: The uterus measures 12.3 x 6.3 x 8 cm. The endometrial complex measures 1.3 cm. The right ovary measures 2.4 x 2.3 x 2.3 cm and the left ovary measures 3 x 2.5 x 2.1 cm. There are small follicles in each ovary. Normal doppler signal in both ovaries. There is no free fluid in the pelvis. There are no abnormal masses seen on either side. IMPRESSION: 1. Mildly in the enlarged uterus with endometrial thickening measuring 1.3 cm. Reviewed, dictated and finalized at location B.
== END 2021-03-03 09:12 | disposition home or self-care (01) ==
LOC: ANHIMG 09:12
PROVIDERS: PCP Student in an Organized Health Care Education/Training Program; Visit Provider Student in an Organized Health Care Education/Training Program
DX: O02.1 Missed abortion (principal)
CPT/HCPCS: 76830; 76856

== ENCOUNTER 2021-11-28 01:45 | Day surgery (SDC) | payer OTHER, SELFPAY ==
[2021-11-24 14:21] VITALS: BMI 33.6
--- NOTE | 2021-11-24 14:37 | PC.NURSE ---
Report to the Outpatient Waiting Room, entrance under the green pavilion located off [facility], at time __10:30AM on date _11/28/21 . OR Time: __12:30PM . - You and your visitor will be asked a series of questions to screen for COVID 19 for your protection. - A mask is required within the hospital. Preoperative COVID Testing Requirements: No COVID Test needed if: (proof is required; if not received patient will have Rapid Test prior to entry) - Patient has received COVID Vaccine at least 14 days prior to procedure date or - Patient has positive COVID test result within last 90 days of surgery date. COVID Test needed if above criteria is not met If not COVID vaccinated a COVID test must be conducted within 72 hours of surgery and patient is asked to isolate self from time of testing until procedure. You will go to the [facility] for your COVID testing. The [employer] [facility] site is located at the corner of [address] [facility]. You will only be called if COVID results are positive and your surgeon may reschedule your elective surgery date. Patients may have clear liquids (water, carbonated beverages, clear teas, apple juice) until 3 hours prior to surgery with a maximum of 20 ounces. - No food from midnight until time of surgery - Infants may have breast milk until 4 hours before surgery, formula 6 hours prior to surgery. - Children will be allowed to drink immediately following surgery. If applicable, please bring a bottle or sippy cup to assist with drinking. Juice, water, soda, and popsicles are readily available. For infants on formula, please bring formula the day of surgery. Pacifiers are allowed. Take the following medications with a SIP of water the morning of surgery: NONE Medications to discontinue per physician NONE Date to take last dose Please no make-up, nail [place], hairspray, perfume, deodorant, or body powder the day of surgery. No jewelry (including any body piercings) or valuables the day of surgery, leave them at home. Please take a shower or bath the night before, or the morning of, surgery with an antibacterial soap. Wear comfortable, loose fitting clothing. Children are encouraged to wear pajamas. - Jewelry must be removed prior to entering the operating room. Rings and piercings that are not removed may be cut off. - The hospital will not accept responsibility for valuables. - Please leave all valuables, including medications, at home the day of surgery. If you are going home after surgery, a licensed wagon driver must drive you home. - NO public transportation without another adult. - We recommend that an adult stay with you for 24 hours following discharge. - We also recommend that you do not drive, make important decision, drink alcoholic beverages, or take any drugs that were not prescribed by your health care provider for at least 24 hours after your discharge time. For Pediatric surgeries, we recommend two adults accompany the child home (only one inside the building at this time). One visitor will be allowed to accompany the patient into the hospital. Patients visitor will be instructed to remain with patient at all times or leave the building. We will allow the visitor to come back to the postoperative area when patient is ready. Follow any additional instructions given to you from your surgeon. Telephone instructions given to __PATIENT AND FRIEND and asked if any additional questions and then verbalized understanding. Patient advised to call surgeon office or pre surgery nurse liaison [phone] if any additional questions.
[2021-11-28 10:15] VITALS: BP 114/69; PULSE 16; RESP 16; TEMP 36.9; O2SAT 100
--- NOTE | 2021-11-28 10:22 | WPDHPUPDATE1 ---
History and Physical Update Update Date/Time: 11/28/21 10:22 History and Physical has been reviewed, including an updated exam of the patient. There are NO changes in the patient's condition. Risks, benefits, and alternatives have been discussed and questions answered. Patient agrees to proceed with procedure.
--- NOTE | 2021-11-28 10:24 | P.PNAN_ITS ---
Anes - Initial Pre Proc Eval Procedure: Operation Date: 11/28/21 11:30 Proposed Procedures p Suction Dilation and Curettage - Monet Broderick MD Date/Time: 11/28/21 10:24 Surgeon: Monet Broderick MD Pre Op Diagnosis: missed ab Patient Data Age: 36 Gender: F Height: 1.5 m Weight: 75.6 kg Allergies Allergy/AdvReac Type Severity Reaction Status Date / Time No Known Allergies Allergy Verified 11/24/21 14:16 Home Medications Medication Instructions Recorded Confirmed Type omeprazole 20 mg PO DAILY PRN 02/15/21 11/24/21 History ibuprofen [IBU] 600 mg PO Q6H PRN #20 tablet 02/26/21 11/24/21 Rx Patient hx anesthesia problems: none Family hx anesthesia problems: none Results Review: All pre-operative results and documents have been reviewed as part of the pre-operative evaluation. PENDING SALE TO [facility] Past Medical History Medical History Abdominal pain, left lower quadrant Acid reflux Anemia Blood transfusion without reported diagnosis delivery delivered 04/09/20, c/s, full term, male, 7#12 Failure to progress in labor heart rate decelerations affecting management of mother H/O nephrolithotomy with removal of calculi Hx of gastroesophageal reflux (GERD) Kidney stones Missed 2010 No significant past medical history Surgical History Surgical History H/O lithotripsy History of D&C History of primary section Previous section 2019 Family History Family History Other Unknown family medical history Social History Social History Smoking status: Never smoker Alcohol intake: never Substance use: never Living arrangements: with family Additional living arrangements comments: & son Gender identity (if verbalized by the patient): Female Spiritual care concerns: No Agree to blood products: Yes Anes - Eval Final PreProcedure Day of Procedure 11/28/21 10:24 Patient weight: obese Heart: regular rate and rhythm Lungs: clear to auscultation and normal air movement Airway: Mallampati scale class II Neurological: alert and oriented Last oral intake: >/= 8 hours ASA classification: II Emergent: no Anesthetic plan: proceed Anesthesia type and monitoring: general GIVS and standard monitoring Results Review: All pre-operative results and documents have been reviewed as part of the pre-operative evaluation. Informed Consent: The patient's anesthetic plan and its attendant risks and benefits were discussed with the patient/family/POA. Questions were solicited and answers provided to the satisfaction of the patient/family/POA.
--- NOTE | 2021-11-28 10:25 | PM.IMHP ---
H&P: HPI History of Present Illness Date/Time: 11/28/21 10:25 this patient is a 36-year-old female with missed A/B. She like dilatation curettage. Suction dilatation curettage. We have agreed to proceed. She understands the risks. She understands that injuries may occur that result in hospitalization, more surgery, severe illness. She denies any bleeding currently. She denies any nausea, vomiting, fever, chills. She denies any chest pain or shortness of breath. She denies any cramping or pelvic pain. Chief Complaint: Missed miscarriage Review of Systems Review of Systems: All systems reviewed & are unremarkable except as noted in HPI and below Constitutional: Constitutional: Denies chills, Denies fatigue, Denies fever(s) and Denies weakness Eyes: Eyes: Denies blurry vision, Denies change in vision, Denies loss of peripheral vision, Denies loss of vision, Denies other visual disturbances and Denies eye pain ENT: Denies vertigo, Denies dizziness, Denies hearing loss, Denies mouth pain, Denies nasal obstruction, Denies neck mass and Denies neck pain Cardiovascular: Cardiovascular: Denies chest pain, Denies diaphoresis, Denies syncope, Denies leg edema and Denies dyspnea Respiratory: Respiratory: Denies chest congestion, Denies cough, Denies hemoptysis, Denies dyspnea and Denies wheezing Gastrointestinal: Gastrointestinal: Denies abdominal pain, Denies constipation, Denies diarrhea, Denies nausea and Denies vomiting Genitourinary: Genitourinary: Denies hematuria, Denies change in libido, Denies nocturia, Denies genital lesions, Denies flank pain and Denies urinary urgency Musculoskeletal: Musculoskeletal: Denies abnormal gait, Denies back pain, Denies myalgias, Denies arthralgias, Denies joint swelling, Denies muscle weakness and Denies neck pain Integumentary/Breasts: Skin/Breast: Denies swelling, Denies breast pain, Denies breast mass, Denies dry skin, Denies nipple discharge, Denies unusual bruising and Denies jaundice Neurologic: Denies Neuro-related abnormal movements, Denies Abnormal speech present, Denies abnormal gait, Denies behavioral changes, Denies confusion, Denies vertigo, Denies dizziness, Denies syncope, Denies loss of vision, Denies memory loss, Denies convulsions and Denies weakness Psychiatric: Psychiatric: Denies abnormal sleep pattern, Denies behavioral changes, Denies change in libido, Denies confusion, Denies depression, Denies anhedonia and Denies memory loss Endocrine: Endocrine: Reports no additional endocrine complaints, Denies change in libido and Denies fatigue Hematologic/Lymphatic: Hematologic/Lymphatic: Reports no additional hematologic/lymphatic complaints Allergic/Immunologic: Allergic/Immunologic: Reports no additional allergic/immunologic complaints and Denies wheezing PMFSH Past Medical History Medical History Abdominal pain, left lower quadrant Acid reflux Anemia Blood transfusion without reported diagnosis delivery delivered 04/09/20, c/s, full term, male, 7#12 Failure to progress in labor heart rate decelerations affecting management of mother H/O nephrolithotomy with removal of calculi Hx of gastroesophageal reflux (GERD) Kidney stones Missed 2010 No significant past medical history Surgical History Surgical History H/O lithotripsy History of D&C History of primary section Previous section 2019 Family History Family History Other Unknown family medical history Social History Social History Smoking status: Never smoker Alcohol intake: never Substance use: never Living arrangements: with family Additional living arrangements comments: & son Gender identity (if verbalized by the patien
[2021-11-28] MEDS: ACETAMINOPHEN 500 MG TABLET 1000 MG PO (10:30)
[2021-11-28] MEDS: ONDANSETRON INJ 4 MG/2 ML VIAL IV PUSH (10:30)
[2021-11-28] MEDS: LACTATED RINGERS 1,000 ML 30 ML IV CONT (10:30)
[2021-11-28] MEDS: KETOROLAC 30 MG/ML VIAL (*BKC) IV PUSH (11:14)
[2021-11-28 11:19] VITALS: BP 104/69; PULSE 71; RESP 12; O2SAT 92
--- NOTE | 2021-11-28 11:24 | P.OP_ITS ---
Procedure Note - Detailed Date of Procedure 11/28/21 Pre-op Diagnosis missed ab Post-op Diagnosis Same Procedure Performed Suction D&C Surgeon Monet Broderick MD Anesthesia MAC Indications missed Findings normal-appearing vulva vagina and cervix to. Moderate amount of products conception within the uterus. 8 cm uterus Description of Procedure the patient was taken the operating room. She was prepped and draped in dorsal lithotomy position after induction of mac anesthesia. A speculum was placed in the vagina. Cervix grasped with tenaculum. The cervix was dilated to about 1 cm Using Palencia dilators. A 8. Spanish curved curette was used to perform suction D&C. The curette was introduced and vacuum was applied. The curette was removed over all surfaces of the intrauterine cavity multiple times. This was done until all the surfaces were clear and had the familiar grainy texture they can be felt through the instrument. A sharp curette was then used to curettage all the surfaces. The suction cup was then reapplied 1 more time to remove any debris. The instruments were removed. The speculum and tenaculum were removed. The patient tolerated the procedure well. She was taken recovery room stable condition. Estimated Blood Loss 50 Drains No Packing No Pathology Yes Complications No immediate complications Condition Stable Disposition PACU
--- NOTE | 2021-11-28 11:27 | SUR.OPER ---
Outpatient aware need for translation no iranian.
[2021-11-28 11:45] VITALS: BP 106/66; PULSE 53; RESP 12; O2SAT 95
[2021-11-28 12:15] VITALS: BP 109/66; PULSE 58; RESP 14; O2SAT 95
[2021-11-28] MEDS: oxyCODONE HCL (*CRX) 5 MG TAB IR PO (12:36)
[2021-11-28 12:38] VITALS: BP 104/68; PULSE 57; RESP 14
== END 2021-11-28 12:49 | disposition home or self-care (01) ==
PROVIDERS: Visit Provider Obstetrics & Gynecology
PROC: (CPT 59820; principal; 2021-11-28 11:30)
DX: O02.1 Missed abortion (principal); K21.9 Gastro-esophageal reflux disease without esophagitis; Z3A.00 Weeks of gestation of pregnancy not specified
CPT/HCPCS: 59820; 36415; 85461; 88305; A9270; J1885; J2250; J2405; J2704; J3010; J7120

== ENCOUNTER 2021-12-04 07:55 | Emergency (ER) | payer OTHER, SELFPAY ==
--- NOTE | ~2021-12-04 | US_ITS ---
EXAMINATION: US pelvic complete w TV DATE: 12/04/2021 10:04 INDICATION: Vaginal bleeding. Pelvic pain. Comparison:Ultrasound dated 03/03/2011 TECHNIQUE: Multiple transabdominal and endovaginal sonographic images of the pelvis performed. FINDINGS: The uterus measures 11.2 x 5.2 x 8.8 cm. The endometrial complex measures 7 mm with trace e ndometrial fluid. The right ovary measures 5.2 x 4.4 x 4.4 cm and the left ovary measures 3.6 x 2.4 x 2.7 cm. There is a 3.2 cm right ovarian cyst. Normal doppler signal in both ovaries. There is no free fluid in the pelvis. There are no abnormal masses seen on either side. IMPRESSION: 1. Right ovarian cyst measuring 3.2 cm. 2: Trace endometrial fluid without endometrial thickening. Reviewed, dictated and finalized at location B.
[2021-12-04 08:05] VITALS: BP 121/78; PULSE 57; RESP 18; TEMP 36.7; O2SAT 100
[2021-12-04 08:40] LABS: Basophils Absolute Auto 0.1 K/mm3 (0.0-0.1); Basophils Percent Auto 0.9 % (0.2-1.2); Eosinophils Absolute Auto 0.5 K/mm3 (0-0.3); Eosinophils Percent Auto 7.3 % (0-4.4); Hematocrit 37.2 % (37.0-47.0); Hemoglobin 11.2 g/dL (12.0-15.0); Immature Granulocyte Absolute 0.01 K/mm3 (0.00-0.031); Immature Granulocyte Percent A 0.2 % (0-0.5); Lymphocytes Absolute Auto 1.98 K/mm3 (0.9-3.2); Lymphocytes Percent Auto 31.3 % (18.3-44.2); Mean Corpuscular HGB Conc 30.1 g/dl (32-36); Mean Corpuscular Hemoglobin 22.9 pg (26-34); Mean Corpuscular Volume 75.9 fl (80-100); Mean Platelet Volume 9.8 fl (7.4-10.4); Monocytes Absolute Auto 0.5 K/mm3 (0.1-0.6); Monocytes Percent Auto 8.5 % (2.6-8.5); Neutrophils Absolute Auto 3.3 K/mm3 (1.3-6.7); Neutrophils Percent Auto 51.8 % (45.5-73.1); Platelet Count Result 298 k/mm3 (150-375); Red Cell Distribution Width 16.8 % (11.5-14.5); White Blood Count 6.3 K/mm3 (4.5-10.0)
[2021-12-04 08:43] VITALS: BP 138/73; PULSE 60; RESP 17; O2SAT 100
[2021-12-04 08:50] LABS: Alanine Aminotransferase 77 U/L (4-35); Albumin Level 4.4 g/dL (3.5-5.1); Alkaline Phosphatase 114 U/L (38-126); Anion Gap 8 mmol/L (8-16); Aspartate Amino Transferase 88 U/L (14-36); Bilirubin,Total 0.2 mg/dL (0.2-1.3); Blood Urea Nitrogen 10 mg/dL (7-17); Calcium 8.7 mg/dL (8.4-10.2); Carbon Dioxide 27 mmol/L (22-30); Chloride 105 mmol/L (98-107); Estimated Glomerular Filt Rate > 60; Glucose 107 mg/dL (65-110); Potassium 3.3 mmol/L (3.4-5.0); Sodium 140 mmol/L (137-145)
[2021-12-04 08:51] LABS: Partial Thromboplastin Time 27.3 SECONDS (22.3-36.8); Prothrombin Time 13.2 Seconds (11.1-14.7)
[2021-12-04 09:13] VITALS: BP 124/74; PULSE 52
[2021-12-04 09:14] VITALS: BP 134/90; PULSE 58
[2021-12-04 09:16] VITALS: BP 138/78; PULSE 58
--- NOTE | 2021-12-04 09:46 | PC.NURSE ---
pt in CT at this time.
--- NOTE | 2021-12-04 10:06 | ED.FEMALEGU ---
HPI - Female Genitourinary General Chief complaint: Vaginal Bleeding Stated complaint: vaginal bleeding Time Seen by Provider: 12/04/21 08:12 Source: patient Mode of arrival: ambulatory Limitations: language barrier (greek speaking) History of Present Illness HPI Narrative: This is a 36 year old female who presents for evaluation of heavy vaginal bleeding s/p D and C. Patient had D and C performred on 11/28/21 for a missed . She developed heavy vaginale bleeding on Saturday. Her bleeding is subsiding but she is reporting severe lower abdominal cramping. She denies abdominal cramping now. She denies nausea, vomiting, fever or chills. She has used 3 pads today. She has not taken anything for pain in several hours. Related Data Home Medications Medication Instructions Recorded Confirmed omeprazole 20 mg PO DAILY PRN 02/15/21 11/28/21 Allergies Allergy/AdvReac Type Severity Reaction Status Date / Time No Known Allergies Allergy Verified 12/04/21 08:12 Review of Systems Review of Systems: All systems reviewed & are unremarkable except as noted in HPI and below PMFSH Past Medical History Medical History Abdominal pain, left lower quadrant Acid reflux Anemia Blood transfusion without reported diagnosis delivery delivered 04/09/20, c/s, full term, male, 7#12 Failure to progress in labor heart rate decelerations affecting management of mother H/O nephrolithotomy with removal of calculi Hx of gastroesophageal reflux (GERD) Kidney stones Missed 2010 No significant past medical history Surgical History Surgical History H/O lithotripsy History of D&C History of primary section Previous section 2019 Family History Family History Other Unknown family medical history Social History Social History Smoking status: Never smoker Alcohol intake: never Substance use: never Additional living arrangements comments: & son Gender identity (if verbalized by the patient): Female Spiritual care concerns: No Agree to blood products: Yes Exam Const: General: alert Nutritional Appearance: obese Orientation/consciousness: patient oriented x3 Eyes: EOM: EOMs intact bilaterally Resp: Effort & Inspection: normal respiratory effort and no retractions Auscultation: clear to auscultation bilaterally Cardio: Rate: regular rate Rhythm: regular rhythm Heart sounds: no murmurs GI: GI Palp: Yes Soft to palpation, Yes Tenderness to palpation present (GI) (suprapubic), No Guarding due to palpation present (GI) and No Rigid due to palpation Auscultation: normal bowel sounds : Speculum Exam - Cervix: Cervical os closed Other: minimal bleeding, no clots Neuro: General: patient oriented x3, moves all extremities and CN's II-XI intact bilaterally Psych: Mental Status: mental status grossly normal Affect: normal affect Course Reevaluation(s) Reevaluation #1: Patient states she feels better. I discussed US. I also spoke with Dr. Broderick about patient and US. He would like patient to see him in clinic today. Patient is okay with plan for discharge and see Dr. Broderick in clinic upon leaving here. This is likely painful menstrual cycle. Date: 12/04/21 Time: 11:17 Vital Signs Vital signs: Vital Signs Temperature 98.1 F 12/04/21 08:05 Pulse Rate 57 L 12/04/21 08:05 Respiratory Rate 18 12/04/21 08:05 Blood Pressure 121/78 12/04/21 08:05 Pulse Oximetry 100 12/04/21 08:05 Temperature 98.1 F 12/04/21 08:05 Pulse Rate 60 12/04/21 10:59 Respiratory Rate 18 12/04/21 10:59 Blood Pressure 138/78 12/04/21 10:59 Pulse Oximetry 100 12/04/21 10:59 MDM - Female Genitourinary Medical
[2021-12-04] MEDS: KETOROLAC 30 MG/ML VIAL (*BKC) IV PUSH (10:10)
[2021-12-04 10:59] VITALS: BP 138/78; PULSE 60; RESP 18; O2SAT 100
== END 2021-12-04 11:32 | disposition home or self-care (01) ==
PROVIDERS: Emergency Provider General Practice
DX: N94.6 Dysmenorrhea, unspecified (principal); N93.9 Abnormal uterine and vaginal bleeding, unspecified; K21.9 Gastro-esophageal reflux disease without esophagitis; Z87.442 Personal history of urinary calculi; N83.201 Unspecified ovarian cyst, right side
CPT/HCPCS: 36415; 76830; 76856; 80053; 81025; 85025; 85610; 85730; 86850; 86900; 86901; 96374; 99284; J1885

== ENCOUNTER 2022-12-08 10:30 | Emergency (ER) | payer OTHER, SELFPAY ==
[2022-12-08] VITALS (15 sets, daily range): BP systolic 120–138; BP diastolic 81–95; PULSE 56–68; RESP 16–21; TEMP 36.5–36.7; O2SAT 98–100
--- NOTE | ~2022-12-08 | CT_ITS ---
EXAMINATION: CT abdomen pelvis w con DATE: 12/08/2022 12:25 INDICATION: Abdominal pain TECHNIQUE: Computed tomography (CT) of the abdomen and pelvis was performed with 100 cc Omnipaque 350 intravenous contrast. The dose-length product was 542.11 mGy-cm. Automated exposure control and iter ative reconstruction technique were employed. COMPARISON: CT dated 02/26/2021 FINDINGS: Lung bases are unremarkable. Heart size normal. No significant vascular abnormality. Stable low-density lesion lateral segment left hepatic lobe, likely benign hemangioma. Fatty infiltration o f the liver. There are gallstones. No gallbladder wall thickening or pericholecystic fluid. Nonobstru ctive bowel gas pattern. No free air or free fluid. The spleen, pancreas, adrenal glands and left kid elio are unremarkable. There is a 2 mm nonobstructing left renal stone. No hydronephrosis. Small fat-c ontaining umbilical hernia. No lymphadenopathy. There is osteoarthritis of the hips. No acute osseous abnormality. IMPRESSION: 1. No acute abdominal abnormality. 2: Cholelithiasis. Reviewed, dictated and finalized at location A.
--- NOTE | 2022-12-08 10:46 | ED.ABDPAIN ---
HPI - Abdominal Pain General Chief Complaint: Abdominal Pain Stated Complaint: ABD Pain Time Seen by Provider: 12/08/22 10:43 Source: patient and family Limitations: no limitations History of Present Illness HPI narrative: 37 years old female brought to the emergency room by private car with her complaining of left upper quadrant pain started 4 days ago, intermittent, lately constant associated with chills and nausea. She denies any history of abdominal surgery. Patient does not speak Macedonian, at the bedside and he was able to provide the history. She denies any fever, vomiting, diarrhea, constipation or urinary symptoms. Related Data Home Medications Medication Instructions Recorded Confirmed omeprazole 20 mg tablet,delayed 20 mg PO DAILY PRN Heartburn 02/15/21 12/08/22 release Allergies Allergy/AdvReac Type Severity Reaction Status Date / Time No Known Allergies Allergy Verified 12/08/22 11:24 Review of Systems Review of Systems: All systems reviewed & are unremarkable except as noted in HPI and below PMFSH Past Medical History Medical History Abdominal pain, left lower quadrant Acid reflux Anemia Blood transfusion without reported diagnosis delivery delivered 04/09/20, c/s, full term, male, 7#12 Failure to progress in labor heart rate decelerations affecting management of mother H/O nephrolithotomy with removal of calculi Hx of gastroesophageal reflux (GERD) Kidney stones Missed 2010 No significant past medical history Surgical History Surgical History H/O lithotripsy History of D&C History of primary section Previous section 2019 Family History Family History Other Unknown family medical history Social History Social History Smoking status: Never smoker Alcohol intake: never Substance use: never Living arrangements: with family Additional living arrangements comments: & son Gender identity (if verbalized by the patient): Female Spiritual care concerns: No Agree to blood products: Yes Exam Narrative: General appearance: Well-developed, well-nourished Skin: Normal color Head: Normocephalic, nontraumatic Eyes: Clear conjunctiva ENT: Oropharynx normal, ears normal, nose normal Neck: Supple, nontender Chest and respiratory: Airway patent, no respiratory distress, no accessory muscle use Heart: Regular rate/rhythm Abdomen: Soft, nontender, no organomegaly, quiet bowel sounds Vascular: Normal peripheral pulses, normal capillary refill. Musculoskeletal: Normal range of motion, nontender back Neurologic: Alert and oriented ?3, CLOUD OPERATIONS ENGINEER is normal as tested, no gross motor deficit Course Reevaluation(s) Reevaluation #1: Work-up today showed urinary tract infection, patient received 1 g of Rocephin IV and Toradol 30 mg IV, feeling great at the time of discharge. Date: 12/08/22 Time: 14:47 Vital Signs Vital signs: Vital Signs Pulse Oximetry 99 12/08/22 10:47 Temperature 36.7 C 12/08/22 17:20 Pulse Rate 65 12/08/22 17:20 Respiratory Rate 18 12/08/22 17:20 Blood Pressure 130/93 H 12/08/22 17:20 Pulse Oximetry 98 12/08/22 17:20 Oxygen Delivery Room Air 12/08/22 11:10 MDM - Abdominal Pain MDM Narrative Medical decision making narrative: Patient presents with left upper quadrant pain, started 4 days ago, constant, denies relieving or aggravating factors. Physical examination showed qu
--- NOTE | 2022-12-08 10:48 | ECG_ITS ---
Measurements Intervals Greenback Rate: 60 P: 46 NV: 143 QRS: 16 QRSD: 93 T: -2 QT: 420 QTc: 421 Interpretive Statements SINUS RHYTHM BORDERLINE T WAVE ABNORMALITY- INFERIOR LEADS BASELINE ARTIFACT- I, II, III, AVR, AVL, V1 BORDERLINE ECG NO PREVIOUS ECG AVAILABLE FOR COMPARISON Electronically Signed On 12-08-2022 21:32:17 CDT by Ramesh Forbes D.O.
[2022-12-08 11:52] LABS: Basophils Absolute Auto 0.1 K/mm3 (0.0-0.1); Basophils Percent Auto 1.1 % (0.2-1.2); Eosinophils Absolute Auto 0.3 K/mm3 (0-0.3); Eosinophils Percent Auto 5.2 % (0-4.4); Hematocrit 41.6 % (37.0-47.0); Hemoglobin 12.7 g/dL (12.0-15.0); Immature Granulocyte Absolute 0.01 K/mm3 (0.00-0.031); Immature Granulocyte Percent A 0.2 % (0-0.5); Lymphocytes Absolute Auto 1.77 K/mm3 (0.9-3.2); Mean Corpuscular HGB Conc 30.5 g/dl (32-36); Mean Corpuscular Hemoglobin 24.6 pg (26-34); Mean Corpuscular Volume 80.5 fl (80-100); Mean Platelet Volume 9.6 fl (7.4-10.4); Monocytes Absolute Auto 0.5 K/mm3 (0.1-0.6); Monocytes Percent Auto 8.7 % (2.6-8.5); Neutrophils Absolute Auto 2.9 K/mm3 (1.3-6.7); Neutrophils Percent Auto 52.8 % (45.5-73.1); Platelet Count Result 256 k/mm3 (150-375); Red Blood Count 5.17 M/mm3 (4.2-5.4); Red Cell Distribution Width 14.5 % (11.5-14.5); White Blood Count 5.5 K/mm3 (4.5-10.0)
[2022-12-08 12:07] LABS: Alanine Aminotransferase 44 U/L (6-35); Albumin Level 4.7 g/dL (3.5-5.1); Alkaline Phosphatase 111 U/L (38-126); Anion Gap 5 mmol/L (8-16); Aspartate Amino Transferase 32 U/L (14-36); Bilirubin,Total 0.5 mg/dL (0.2-1.3); Blood Urea Nitrogen 10 mg/dL (7-17); Calcium 8.8 mg/dL (8.4-10.2); Carbon Dioxide 28 mmol/L (22-30); Chloride 107 mmol/L (98-107); Estimated Glomerular Filt Rate > 60; Glucose 122 mg/dL (65-110); Lipase 123 U/L (23-300); Potassium 3.2 mmol/L (3.4-5.0); Sodium 140 mmol/L (137-145)
[2022-12-08] MEDS: SODIUM CHLORIDE 0.9% IV 1,000 ML 999 ML IV CONT (12:29)
--- NOTE | 2022-12-08 14:53 | PC.NURSE ---
Clarified with MD, we have not run urine this admission. Will send at this time, hold off on ceftriaxone.
[2022-12-08 15:28] LABS: Appearance Urine Cloudy (Clear); Bacteria Urine Rare /hpf; Bilirubin Urine Negative (Negative); Blood Urine 3+ (Negative); Color Urine Yellow (Yellow); Glucose Urine UA Negative (Negative); Ketones Urine Negative (Negative); Leukocyte Esterase Ur Trace LEU/UL (Negative); Nitrate Urine Negative (Negative); Non Pathogenic Casts 0-2; Protein Urine Trace mg/dL (Negative); Specific Grav Ur 1.018 (1.001-1.035); Squamous Epithelial Cell Urine Moderate /hpf (Few); Urobilinogen Urine 0.2 mg/dL (<2.0); pH Urine 6.5 (5.0-9.0)
[2022-12-08 15:42] LABS: Add Urine Microscopic? YES
[2022-12-08] MEDS: KETOROLAC 30 MG/ML VIAL (*BKC) IV PUSH (16:28)
--- NOTE | 2022-12-08 16:37 | PC.NURSE ---
Resource Specialist Teacher used. Informed patient she has a UTI and that gallstones were incidental finding, are not the cause of her pain as gallbladder is on opposite side of her pain. Verbalized understanding, started on IV antibiotics, given toradol for pain.
[2022-12-08] MEDS: POTASSIUM CHLORIDE 20 MEQ TABLET 40 MEQ PO (17:13)
== END 2022-12-08 17:20 | disposition home or self-care (01) ==
PROVIDERS: Emergency Provider Emergency Medicine
DX: N39.0 Urinary tract infection, site not specified (principal); E87.6 Hypokalemia; D64.9 Anemia, unspecified; Z87.442 Personal history of urinary calculi
CPT/HCPCS: 36415; 74177; 80053; 81001; 81025; 83690; 85025; 87086; 87088; 93005; 96361; 96365; 96375; 99284; A9270; J0696; J1885; J7030; Q9967

== ENCOUNTER 2024-01-16 06:31 | Emergency (ER) | payer MEDICAID, SELFPAY ==
--- NOTE | ~2024-01-16 | US_ITS ---
EXAMINATION: US OB <= 14 weeks fetus DATE: 01/16/2024 08:30 INDICATION: Left lower quadrant pain TECHNIQUE: Real-time transabdominal and transvaginal obstetric ultrasound. FINDINGS: No prior studies for comparison. The uterus measures 11.7 x 5.4 x 8.5 cm. There is an intrauterine gestational sac corresponding to a 5 week 5 day gestation with mean sac diameter of 9 mm. No pole or yolk sac are seen. Right ovar y measures 4 x 2.5 x 2.5 cm with normal signal. Left ovary measures 4.9 x 3.1 x 3.5 cm with a corpus luteal cyst measuring 3.4 cm. IMPRESSION: 1. Intrauterine gestational sac without pole or yolk sac. Mean sac diameter corresponds to 5 we ek 5 day gestation (SHIVANI 09/12/2024). Recommend follow-up with serial quantitative beta-hCG levels and ultrasound as clinically indicated. Reviewed, dictated and finalized at location B. IMPRESSION: 1. Intrauterine gestational sac without pole or yolk sac. Mean sac diamet er corresponds to 5 week 5 day gestation (SHIVANI 09/12/2024). Recommend follow-up with serial quantitative beta-hCG levels and ultrasound as clinically indicated .
[2024-01-16 06:39] VITALS: BP 120/81; PULSE 66; RESP 14; TEMP 36.6; O2SAT 100
[2024-01-16 06:57] LABS: Basophils Absolute Auto 0.1 K/mm3 (0.0-0.1); Basophils Percent Auto 0.9 % (0.2-1.2); Eosinophils Absolute Auto 0.3 K/mm3 (0-0.3); Eosinophils Percent Auto 4.3 % (0-4.4); Hematocrit 38.3 % (37.0-47.0); Immature Granulocyte Absolute 0.01 K/mm3 (0.00-0.031); Immature Granulocyte Percent A 0.2 % (0-0.5); Lymphocytes Absolute Auto 1.87 K/mm3 (0.9-3.2); Lymphocytes Percent Auto 32.2 % (18.3-44.2); Mean Corpuscular HGB Conc 31.3 g/dl (32-36); Mean Corpuscular Hemoglobin 25.9 pg (26-34); Mean Corpuscular Volume 82.5 fl (80-100); Mean Platelet Volume 10.1 fl (7.4-10.4); Monocytes Absolute Auto 0.5 K/mm3 (0.1-0.6); Monocytes Percent Auto 8.6 % (2.6-8.5); Neutrophils Absolute Auto 3.1 K/mm3 (1.3-6.7); Neutrophils Percent Auto 53.8 % (45.5-73.1); Platelet Count Result 265 k/mm3 (150-375); Red Blood Count 4.64 M/mm3 (4.2-5.4); Red Cell Distribution Width 15.2 % (11.5-14.5); White Blood Count 5.8 K/mm3 (4.5-10.0)
--- NOTE | 2024-01-16 07:00 | ED.FEMALEGU ---
HPI - Female Genitourinary General Chief complaint: Vaginal Bleeding Stated complaint: abd pain Time Seen by Provider: 01/16/24 06:58 Source: patient Limitations: language barrier History of Present Illness HPI Narrative: Patient presents stating she is and having abdominal pain. Interpretive services are used with MILAN wire chief [id number]. Patient states she had abdominal pain yesterday in the lower quadrant that resolved throughout the day but then restarted again this morning. She then experienced some light vaginal spotting this morning it is for these reasons she presents to the emergency department. She states in triage that she is approximately 9 weeks . Patient states she was diagnosed with recently in our emergency department and has an appointment to see an ice handler and establish with them for this later today. She is a G 4 P 1021 (2 losses) female whose LMP is 11/05/23; She states this period was normal but the next period wasn't so LMP unclear. Patient is initially not in the EMR though it is clarified that birthdate had been incorrect. Am informed that previous visit [id number] is same patient (though this record does not later populate into EMR despite other previous records populating) Related Data Home Medications Medication Instructions Recorded Confirmed omeprazole 20 mg tablet,delayed 20 mg PO DAILY PRN Heartburn 02/15/21 12/08/22 release Allergies Allergy/AdvReac Type Severity Reaction Status Date / Time No Known Allergies Allergy Verified 01/16/24 09:41 [facility] Past Medical History Medical History Abdominal pain, left lower quadrant Acid reflux Anemia Blood transfusion without reported diagnosis delivery delivered 04/09/20, c/s, full term, male, 7#12 Failure to progress in labor heart rate decelerations affecting management of mother H/O nephrolithotomy with removal of calculi Hx of gastroesophageal reflux (GERD) Kidney stones Missed 2010 No significant past medical history Surgical History Surgical History H/O lithotripsy History of D&C History of primary section Previous section 2019 Family History Family History (System 01/16/24 @ 09:41 by Ross Mayer) Other Unknown family medical history Social History Social History Smoking status: Never smoker Alcohol intake: never Substance use: never Living arrangements: with family Additional living arrangements comments: & son Gender identity (if verbalized by the patient): Female Spiritual care concerns: No Agree to blood products: Yes Exam Narrative: GENERAL: Well-appearing, well-nourished, and in no acute distress. HEAD: Normocephalic, atraumatic. EYES: Non injected, non icteric ENT: Nares clear, no rhinorrhea or epistaxis. NECK: Supple. CHEST: Speaking in full sentences. No respiratory distress. HEART: Regular rate and rhythm. . ABDOMEN: Soft, nondistended. Mild TTP in LLQ; no rigidity. Not peritoneal PELVIC: exam performed with RN state farm agent team member. No external lesions. Normal vaginal canal and external genitalia. No blood in vaginal vault. Discharge on tip of swab inserted is faintly bloody. Able to visualize cervix but not os. EXTREMITIES: Normal range of motion. No edema. SKIN: Warm, dry, no rash. NEURO: No focal deficits. Alert and oriented x3. PSYCH: Normal mood and affect. Course Vital Signs Vital signs: Vital Signs Temperature 97.8 F 01/16/24 06:39 Pulse Rate 66 01/16/24 06:39 Respiratory Rate 14 01/16/24 06:39 Blood Pressure 120/81 01/16/24 06:39 Pulse Oximetry 100 01/16/24 06:39 Oxygen Delivery Room Air 01/16/24 06:39 Temperature 98.0 F 01/16/24 09:30 Pulse Rate 68 01/16/24 09:30 Respiratory Ra
[2024-01-16 07:07] LABS: Alanine Aminotransferase 19 U/L (6-35); Albumin Level 4.3 g/dL (3.5-5.1); Alkaline Phosphatase 88 U/L (38-126); Anion Gap 6 mmol/L (4-12); Aspartate Amino Transferase 18 U/L (14-36); Bilirubin,Total 0.5 mg/dL (0.2-1.3); Blood Urea Nitrogen 11 mg/dL (7-17); Carbon Dioxide 23 mmol/L (22-30); Chloride 109 mmol/L (98-107); Estimated CRCL calculation 99 ml/min; Estimated Glomerular Filt Rate > 60; Glucose 106 mg/dL (65-110); Potassium 3.4 mmol/L (3.4-5.0); Sodium 138 mmol/L (137-145)
[2024-01-16 07:10] LABS: Prothrombin Time 13.9 Seconds (11.1-14.7)
[2024-01-16 07:11] LABS: Partial Thromboplastin Time 32.2 Seconds (22.3-36.8)
[2024-01-16 08:30] VITALS: BP 120/60; PULSE 70; RESP 16; TEMP 36.6; O2SAT 98
[2024-01-16] MEDS: ACETAMINOPHEN 500 MG TABLET 1000 MG PO (09:28)
[2024-01-16 09:30] VITALS: BP 118/54; PULSE 68; RESP 16; TEMP 36.7; O2SAT 98
[2024-01-16 09:32] LABS: Appearance Urine Cloudy (Clear); Bacteria Urine 2+ /hpf; Bilirubin Urine Negative (Negative); Blood Urine 3+ (Negative); Color Urine Yellow (Yellow); Glucose Urine UA Negative (Negative); Ketones Urine Negative (Negative); Leukocyte Esterase Ur 2+ LEU/UL (Negative); Nitrate Urine Negative (Negative); Non Pathogenic Casts 0-2; Protein Urine Trace mg/dL (Negative); Squamous Epithelial Cell Urine Moderate /hpf (Few); Urobilinogen Urine 0.2 mg/dL (<2.0); WBC Urine 51-100 /hpf (0-3); pH Urine 6.5 (5.0-9.0)
[2024-01-16 09:37] LABS: Add Urine Microscopic? YES
[2024-01-16] MEDS: CEPHALEXIN 500 MG CAPSULE PO (10:13)
== END 2024-01-16 10:22 | disposition home or self-care (01) ==
PROVIDERS: Emergency Medicine; Emergency Provider Student in an Organized Health Care Education/Training Program
DX: O26.891 Other specified pregnancy related conditions, first trimester (principal); R10.30 Lower abdominal pain, unspecified; R82.71 Bacteriuria; O20.9 Hemorrhage in early pregnancy, unspecified; K21.9 Gastro-esophageal reflux disease without esophagitis; Z86.2 Personal history of diseases of the blood and blood-forming organs and certain disorders involving the immune mechanism; Z87.442 Personal history of urinary calculi; Z3A.01 Less than 8 weeks gestation of pregnancy
CPT/HCPCS: 36415; 76801; 80053; 81001; 84702; 85025; 85461; 85610; 85730; 86850; 86900; 86901; 87086; 87088; 99284; A9270

== ENCOUNTER 2024-11-06 05:01 | Inpatient (IN) | payer OTHER, SELFPAY ==
[2024-11-06] VITALS (56 sets, daily range): BP systolic 94–137; BP diastolic 60–95; PULSE 44–80; RESP 13–18; TEMP 36.2–37.1; O2SAT 97–100; BMI 32.3
--- NOTE | ~2024-11-06 | US_ITS ---
EXAMINATION:US venous doppler LE RT INDICATION:Right calf pain and warmth TECHNIQUE: Multiple grayscale, color flow and Doppler images of the right lower extremity deep venous systems were obtained and reviewed. COMPARISON:No prior studies for comparison. FINDINGS: The common femoral, superficial femoral and popliteal veins demonstrate normal respiratory variation, augmentation and compressibility. Color flow is also seen within the posterior tibial, pe roneal, greater saphenous and profunda veins. IMPRESSION: 1: No lower extremity deep venous thrombosis. Reviewed, dictated and finalized at location B. UCT TEST SPECIALIST
--- OUTSIDE RECORDS SUMMARY | 2024-11-06 05:10 | XMS_ITS | Patient Health Summary ---
Author Organization [email or web address] Address [address] [place] [address] Care Team Providers Care Forklift Picker Name Role Phone Unavailable Primary Care Provider Unavailabl e Note from [facility],non-owned Affiliates and Associated Physician Practices is amultiple site organization consisting of ambulatory clinics and hospital sitesin [place], [place], [place] and [place]. This disclosure is being madepursuant to the Care Everywhere program and may not contain all information available regarding this patient. Last updated 18.[email or web address] Allergies No known active allergies Active Problems Problem Noted Date Diagnosed Date Encounter for anatomic survey 11/25/2019 Low lying placenta nos or wi thout hemorrhage, second trimester 11/25/2019 History of anemia 11/25/2019 Social History Tobacco Use Types Packs/Day Years Used Date Smoking Tobacco: Never Assessed Estimated Date of Delivery Comme nts Yes 11/16/2024 Based on Ultraso und Sex and Gender Information Value Date Recorded Sex Assigned at Not on file Gender Identity Not on file Sexual Orientation Not on file Procedures * SONOGRAM - COMPLETE(Performed 08/14/2024) Performed for Encounter for anatomic survey (HCC), Arrhythmia of fetus affecting management of (HCC), Multigravida of advanced maternal age in second trimester (HCC) * SONOGRAM - COMPLETE(Performed 07/14/2024) Performed for Encounter for anatomic survey (HCC), Arrhythmia of fetus affecting management of (HCC), Multigravida of advanced maternal age in second trimester (HCC), H/O: * SONOGRAM - COMPLETE(Performed 11/27/2019) Performed for Encounter for anatomic survey (HCC), Low lying placenta nos or without hemorrhage, second trimester (HCC) Results * SONOGRAM - COMPLETE (08/14/2024 10:26 AM MEDICAL RESEARCH ASSISTANT) Only the most recent of3 resultswithin the time period is included. Linked Results Indication ======== Reassess PAC's Anatomy Screen Complete AMA x1 History ====== OB History 5. Para 1 [id number] Maternal Assessment Physical Exam Height 170 cm, 5 ft 7 in. Initial weight 70 kg, 155 lb. Initial BMI 24.28 kg/m Method ====== Transabdominal ultrasound ========= Espinal . Number of fetuses: 1 Dating ====== Date Details Gest. age SHIVANI Stated SHIVANI 26 w + 4 d 11/16/2024 U/S 08/14/2024 based upon AC, BPD, Femur, HC 27 w + 3 d 11/10/2024 Assigned dating based on stated SHIVANI, selected on 08/14/2024 26 w + 4 d 11/16/2024 General Evaluation Cardiac activity present. FHR 125 bpm. Presentation: head maternal right Placenta: Placental site: fundal Amniotic fluid: Amount of AF: normal. MVP 5.0 cm Biometry BPD 67.7 mm 27w 2d 63% Hadlock HC 249.8 mm 27w 1d 42% Hadlock AC 228.3 mm 27w 1d 62% Hadlock Femur 52.3 mm 27w 6d 74% Hadlock Humerus 48.0 mm 28w 1d 88% Italo HC / AC 1.09 Weight Calculation: EFW 1,074 g 73% Hadlock EFW (lb,oz) 2 lb 6 oz EFW by Hadlock ([id number]) Head / Face / Neck Biometry: Cephalic index 0.77 29% Nicolaides appropriate Growth Overview Exam date GA BPD (mm) HC (mm) AC (mm) FL (mm) HL (mm) EFW (g) 08/14/2024 26w 4d 67.7 63% 249.8 42% 228.3 62% 52.3 74% 48 88% 1074 73% Impression ========= Single, live, intrauterine at 26w 4d size appears appropriate Amniotic fluid volume: normal No evidence of PAC's were noted No major malformations were seen within the limitations of ultrasound Follow-up ======== Repeat ultrasound evaluation is recommended in 4 weeks. Coding ====== Procedures [id number]: US Preg Uterus Follow Up [facility] [place] PACS Anatomical Region Laterality Modality Other 08/14/2024 10:2 6 AM MEDICAL RESEARCH ASSISTANT Checo Oakes MD [facility] ORDERABLES
--- OUTSIDE RECORDS SUMMARY | 2024-11-06 05:10 | XMS_ITS | Clinical Summary ---
Author Organization [facility] Address [address] [place] [address] Phone Care Team Providers Care It Technician Name Role Phone Provider, None Unavailable Unavailable Provider, None Unavailable Unavailable Provider, Not On File Primary Care Provider Unav ailable Allergies No known active allergies Medications IRON PO Take by mouth. Activ e azithromycin (ZITHROMAX Z-JOHANNA) 250 MG Tablet 2 tab(s) daily for 1 day, then 1 tab(s) daily for days 2-5. 6 Tab 10/23/19 18 Active Additional Information Patient not taking.Reported on 11/05/2018 albuterol (PROAIR HFA) 108 (90 Base) MCG/ACT Aerosol Solution take 2 Puffs by inhalation every 4 hours as needed for Wheezing. 8.5 g 10/23/19 18 Active ibuprofen (MOTRIN) 600 MG Tablet Take 1 Tab by mouth every 8 hours. 30 Tab 04/18/20 18 Active Additional Information Patient not taking.Reported on 11/05/2018 Acetaminophen (TYLENOL PO) Take 500 mg by mouth as needed. Active tamsulosin (FLOMAX) 0.4 MG Capsule Take 1 Cap by mouth daily. 90 Cap 09/30/19 19 Active omeprazole (PRILOSEC) 20 MG CAPSULE DELAYED RELEASEIndications:S ymptomatic Gastroesophageal Reflux Disease (Inactive) Take 20 mg by mouth daily. Active Yxvcwqgp-Cvi-Vn-FA ( VITAMINS PO) Take by mouth. Activ e predniSONE (DELTASONE) 10 MG Tablet TAKE 3 TABLETS DAILY X3 DAYS THEN 2 TABLETS DAILY X3 DAYS THEN 1 TABLET DAILY X3 DAYS 18 Tab 05/05/20 19 Active metroNIDAZOLE (FLAGYL) 500 MG Tablet Take 1 Tab by mouth 2 times daily. 14 Tab 10/10/19 20 Active gnuephsm-kijfytlgk-s ydrocortisone (CORTISPORIN) 3.5-67597-[address] 3 Drops in right ear 4 times daily. 10 mL 06/27/20 22 Active HYDROcodone-acetamin ophen (NORCO) 5-325 MG TabletIndications:Mi scarriage Take 1 Tablet by mouth every 8 hours as needed for Moderate or more severe pain. 12 Tablet 01/22/20 24 Active Active Problems Problem Noted Date Diagnosed Date Renal stone 09/30/2018 Ureteral stone 09/30/2018 Family History Medical History Relation Name Comments No Known Problems Father No Known Problems Mother Relation Name Status Comments Father Alive Mother Alive Social History Tobacco Use Types Packs/Day Years Used Date Smoking Tobacco: Never Smokeless Tobacco: Never Alcohol Use Standard Drinks/Week Comments Not Currently 0 (1 standard drink = 0.6 oz pur e alcohol) AUDIT-C Answer Date Recorded Frequency of Alcohol Consumption Never 04/08/2019 Average Number of Drinks Not on file 019 Frequency of Binge Drinking Not on file 03/23 Sexually Active Control Partners Comments Never Comments Unknown Sex and Gender Information Value Date Recorded Sex Assigned at Not on file Legal Sex Female 9:14 PM CDT Gender Identity Not on file Sexual Orientation Not on file Last Filed Vital Signs Vital Sign Reading Time Taken Comments Blood Pressure 147/77 04/22/2024 5:01 AM CDT Pulse 62 04/22/2024 5:01 AM CDT Temperature 37.3 C (99.2 F) 04/22/2024 12:30 AM CDT Respiratory Rate 18 04/22/2024 5:01 AM CDT Oxygen Saturation 100% 04/22/2024 5:01 AM CDT Inhaled Oxygen Concentration - - Weight 74.8 kg (165 lb) 04/22/2024 12:30 AM CDT Height 152.4 cm (5') 04/22/2024 12:30 AM CDT Body Mass Index 32.22 04/22/2024 12:30 AM CDT Plan of Treatment Health Maintenance Due Date Last Done Comments Hepatitis C Virus (HCV) Screening 1983 TdaP Immunization 1983 Hepatitis B Immunization (1 of 3 - 19+ 3-dose series) 2002 Pap Smear 2004 Cervical Cancer Screening (CCS) 2013 HPV/Cotest 2013 Discussion re Starting/Frequ ency of Mammograms 2023 Influenza Immunization (#1) 2024 08/20/2023 SARS-COV-2 Immunization ( - 2023- season) 2024 Respiratory Syncytial Virus (RSV) Immunization (Adult) (1 - 1-dose 75+ series) 2058 Meningococcal Immunization (ACWY) Aged Out No longer eligible based on patient's age to complete this topic Pneumococcal Immunization Combined Aged Out No longer eligible based on patient's age to complete this topic Rotavirus Immunization Aged Out No lo nger eligible based on patient's age to complete this topic Medical Devices Implanted Type Area Distribution Manager Device Identifier Shelf Expiration Date Model / Serial / Lot Stent Ureteral 6fr 2.1fr 24cm 2 Pigtail Curve 2 Durometer Taper Tip Loprfl Graduated Polaris Ultra - [id number] Implanted:Qty : 1 on 10/14/2018 by Amy Hook MD at [facility] IMPLANT Left: Ureter bContext 04/28/2021 [id number] / [id number] / [id number] Explanted Type Area Distribution Manager Device Identifier Shelf Expiration Date Model / Serial / Lot Stent Ureteral 6fr 2.1fr 24cm 2 Pigtail Curve 2 Durometer Taper Tip Loprfl Graduated Polaris Ultra - [id number] Implanted:Qty : 1 on 09/30/2018 by Amy oHok MD at [facility] Explanted:Qty : 1 on 10/14/2018 by Amy Hook MD at [facility] IMPLANT Left: Ureter bContext 02/13/2021 [id number] / [id number] / [id number] Care Teams It Technician Relationship Specialty Start Date End Date Provider, Not On File [place] PCP - General 01/22/24 Provider, None [place] 05/04/19 Provider, None [place] 04/08/19
--- OUTSIDE RECORDS SUMMARY | 2024-11-06 05:10 | XMS_ITS | Referral Summary ---
Author Organization [facility] Address [address] [place] [address] Care Team Providers Care Instrument And Electrical Technician Name Role Phone Unavailable Primary Care Provider Unavailabl e Source Comments [facility],non-owned Affiliates and Associated Physician Practices is amultiple site organization consisting of ambulatory clinics and hospital sitesin [place], [place], [place] and [place]. This disclosure is being madepursuant to the Care Everywhere program and may not contain all information available regarding this patient. Last updated 18.[facility] Encounters Date Type Department Care Team Description 08/14/2024 10:24 AM ICE SKATING TEACHER - 08/14/2024 11:59 PM ICE SKATING TEACHER Hospital Encounter [facility] Women's Health Maternal & Care [facility] [place] [address] Anastasia Schulz MD Head, Alayna Dobbs MD RN BABY Discharge Disposition: Home or Self Care from Last 3 Months Allergies No known active allergies Active Problems Problem Noted Date Diagnosed Date Encounter for anatomic survey 11/25/2019 Overview (11/25/2019): Prominent renal pelvis on previous ultrasound.10/21/19. Low lying placenta nos or wi thout hemorrhage, second trimester 11/25/2019 Overview (11/25/2019): B+ Neg, Immune, Rpr-NR,Hbsag-Neg, HIV-NR AFP tetra-Neg CF screen-Neg History of anemia 11/25/2019 Overview (11/25/2019): 11/20/17 Transfusion X 1 for anemia. Estimated Date of Delivery Comme nts Yes 11/16/2024 Based on Ultraso und Social History Tobacco Use Types Packs/Day Years Used Date Smoking Tobacco: Never Assessed Estimated Date of Delivery Comme nts Yes 11/16/2024 Based on Ultraso und Sex and Gender Information Value Date Recorded Sex Assigned at Not on file Gender Identity Not on file Sexual Orientation Not on file Plan of Treatment Not on file Procedures Procedure Name Priority Date/Time Associated Diagnosis Comments SONOGRAM - COMPLETE Routine 08/14/2024 1 0:26 AM ICE SKATING TEACHER Encounter for anatomic survey (HCC) Arrhythmia of fetus affecting management of (HCC) Multigravida of advanced maternal age in second trimester (HCC) from Last 3 Months Results * SONOGRAM - COMPLETE (08/14/2024 10:26 AM ICE SKATING TEACHER) Linked Results Indication ======== Reassess PAC's Anatomy Screen Complete AMA x1 History ====== OB History 5. Para 1 [id number] Maternal Assessment Physical Exam Height 170 cm, [...] 2 lb 6 oz EFW by Hadlock ([id number]) Head / Face / Neck Biometry: Cephalic [...] recommended in 4 weeks. Coding ====== Procedures [id number]: US Preg Uterus Follow Up [facility] [employer] PACS Anatomical Region Laterality Modality Other 08/14/2024 10:2 6 AM ICE SKATING TEACHER Checo Oakes MD [facility] ORDERABLES from Last 3 Months MAE DING Personal/Famil y 1985 [address] [place] [address] LISSET HOOVER Personal/Famil y 1985 [facility] [place] [address] LISSET MORRISON Personal/Famil y 1985 [address] [place] [address]
--- OUTSIDE RECORDS SUMMARY | 2024-11-06 05:10 | XMS_ITS | Clinical Summary ---
Author Organization [facility] Address [address] [place] [address] Care Team Providers Care Printing Equipment Mechanic Apprentice Name Role Phone Unavailable Primary Care Provider Unavailabl e Source Comments [facility] [employer],non-owned Affiliates and Associated Physician Practices is amultiple site organization consisting of ambulatory clinics and hospital sitesin [place], [place], [place] and [place]. This disclosure is being madepursuant to the Care Everywhere program and may not contain all information available regarding this patient. Last updated 18.[facility] [employer] Allergies No known active allergies Active Problems [...] nts Yes 11/16/2024 Based on Ultraso und Encounters Date Type Department Care Team Description 08/14/2024 10:24 AM HOUSING QUALITY STANDARD INSPECTOR - 08/14/2024 11:59 PM HOUSING QUALITY STANDARD INSPECTOR Hospital Encounter [facility] Women's Health Maternal & Care [address] [place] [address] Anastasia Schulz MD Head, Alayna Dobbs MD CANDLE WRAPPER Discharge Disposition: Home or Self Care from Last 3 Months Social History Tobacco Use Types Packs/Day Years Used Date Smoking Tobacco: Never Assessed Estimated Date of Delivery Comme nts Yes 11/16/2024 Based on Ultraso und Sex and Gender Information Value Date Recorded Sex Assigned at Not on file Gender Identity Not on file Sexual Orientation Not on file Plan of Treatment Health Maintenance Due Date Last Done Comments LIPID TESTING 1985 MAMMOGRAM 1985 HIV SCREENING 1998 HEPATITIS C SCREENING 04/18/2001 DTAP/TDAP/TD VACCINES (1 - Tdap) 2002 HEPATITIS B VACCINE (1 of 3 - 19+ 3-dose series) 2002 PAP SMEAR 10/10/2022 10/10/2019 COVID-19 VACCINE ( - 2023-2 5 season) 2024 INFLUENZA VACCINE (#1) 2024 OB-ONE HOUR GLUCOSE 08/10/2024 OB-TDAP CURRENT 08/17/2024 OB-RHOGAM INJECTION 08/24/2024 DEPRESSION SCREENING 09/23/2024 OB-GROUP B STREP SCREEN 10/12/2024 ZOSTER VACCINE (1 of 2) 2033 HIB VACCINE Aged Out No longer eligi ble based on patient's age to complete this topic HPV VACCINE Aged Out No longer eligi ble based on patient's age to complete this topic MENINGOCOCCAL (Group B) VACCINE Aged Out No longer eligible based on patient's age to complete this topic MENINGOCOCCAL VACCINE Aged Out No isabel maria l eligible based on patient's age to complete this topic PNEUMOCOCCAL VACCINE Aged Out No long er eligible based on patient's age to complete this topic Respiratory Syncytial Virus (RSV) Vaccine Pt: or over 60 yrs (No Doses Required) Completed Procedures Procedure Name Priority Date/Time Associated Diagnosis Comments SONOGRAM - COMPLETE Routine 08/14/2024 1 0:26 AM HOUSING QUALITY STANDARD INSPECTOR Encounter for anatomic survey (HCC) Arrhythmia of fetus affecting management of (HCC) Multigravida of advanced maternal age in second trimester (HCC) from Last 3 Months Results * SONOGRAM - COMPLETE (08/14/2024 10:26 AM HOUSING QUALITY STANDARD INSPECTOR) Linked Results Indication ======== Reassess PAC's Anatomy Screen Complete AMA x1 History ====== OB History 5. Para 1 [id number] Maternal Assessment Physical Exam Height 170 cm, [...] 2 lb 6 oz EFW by Hadlock ([id number]) Head / Face / Neck Biometry: Cephalic [...] recommended in 4 weeks. Coding ====== Procedures [id number]: US Preg Uterus Follow Up [facility] PACS Anatomical Region Laterality Modality Other 08/14/2024 10:2 6 AM HOUSING QUALITY STANDARD INSPECTOR Checo Oakes MD [facility] ORDERABLES from Last 3 Months MAE DING Personal/Famil y [address] [place] [address] LISSET HOOVER Personal/Famil y [address] [place] [address] LISSET MORRISON Personal/Famil y [address] [place] [address]
--- NOTE | 2024-11-06 05:17 | LDADM ---
This patient, Lisset Valdes, was admitted to Labor/Delivery/Recovery 120 on 11/06/24 at 05:01. Plans for labor, pain management and were discussed with patient. Patient/family oriented to hospital policies and general routines including ID bracelet, bed and alarms, visiting hours, pain management, procedures, bathroom and other care routines, personal items, smoking policy, room service/diet and guest tray routines, security routines, and visiting hours. Patient/Family are encouraged to report perceived risks to care and to ask questions if they do not understand what they are told or what they should do. See [facility] for further documentation.
[2024-11-06 05:56] LABS: Basophils Percent Auto 0.9 % (0.2-1.2); Eosinophils Absolute Auto 0.1 K/mm3 (0-0.3); Eosinophils Percent Auto 1.9 % (0-4.4); Hematocrit 33.3 % (37.0-47.0); Hemoglobin 10.3 g/dL (12.0-15.0); Immature Granulocyte Absolute 0.01 K/mm3 (0.00-0.031); Immature Granulocyte Percent A 0.2 % (0-0.5); Lymphocytes Absolute Auto 1.17 K/mm3 (0.9-3.2); Lymphocytes Percent Auto 27.5 % (18.3-44.2); Mean Corpuscular HGB Conc 30.9 g/dl (32-36); Mean Corpuscular Hemoglobin 25.2 pg (26-34); Mean Corpuscular Volume 81.6 fl (80-100); Mean Platelet Volume 11.7 fl (7.4-10.4); Monocytes Absolute Auto 0.4 K/mm3 (0.1-0.6); Monocytes Percent Auto 8.2 % (2.6-8.5); Neutrophils Absolute Auto 2.6 K/mm3 (1.3-6.7); Neutrophils Percent Auto 61.3 % (45.5-73.1); Platelet Count Result 200 k/mm3 (150-375); Red Blood Count 4.08 M/mm3 (4.2-5.4); Red Cell Distribution Width 15.7 % (11.5-14.5); White Blood Count 4.3 K/mm3 (4.5-10.0)
[2024-11-06 06:08] LABS: Alanine Aminotransferase 16 U/L (6-35); Albumin Level 3.5 g/dL (3.5-5.1); Alkaline Phosphatase 335 U/L (38-126); Anion Gap 11 mmol/L (4-12); Aspartate Amino Transferase 21 U/L (14-36); Bilirubin,Total 0.5 mg/dL (0.2-1.3); Blood Urea Nitrogen 13 mg/dL (7-17); Carbon Dioxide 18 mmol/L (22-30); Chloride 108 mmol/L (98-107); Estimated Glomerular Filt Rate > 60; Glucose 146 mg/dL (65-110); Potassium 3.5 mmol/L (3.4-5.0); Sodium 137 mmol/L (137-145); Uric Acid 4.6 mg/dL (2.5-7.5)
[2024-11-06] MEDS: LACTATED RINGERS 1,000 ML 125 ML IV CONT ×2 (06:08→08:01)
[2024-11-06] MEDS: ACETAMINOPHEN 500 MG TABLET 1000 MG PO (06:09)
--- NOTE | 2024-11-06 07:24 | PM.IMHP ---
H&P: HPI History of Present Illness Date/Time: 11/06/24 07:24 Chief Complaint: repeat c section, chronic hypertension, GDMA1 Narrative: Patient is a 39 year old at 38 weeks who presents for repeat c section indicated for chronic hypertension controlled without medications and gestational diabetes mellitus class A1. Her testing has been reactive. She denies headaches, vision changes, chest pain, dyspnea, RUQ pain or epigastric pain. She also desires bilateral salpingectomy at time of her c section. We have extensively discussed the permanence of the procedure and that the procedure cannot be reversed. We discussed other nonpermanent options which he declines. She voices understanding. Review of Systems Review of Systems: All systems reviewed & are unremarkable except as noted in HPI and below PMFSH Past Medical History Medical History H/O nephrolithotomy with removal of calculi Blood transfusion without reported diagnosis Anemia Acid reflux Missed 2010 delivery delivered 04/09/20, c/s, full term, male, 7#12 Abdominal pain, left lower quadrant No significant past medical history heart rate decelerations affecting management of mother Failure to progress in labor Hx of gastroesophageal reflux (GERD) Kidney stones Surgical History Surgical History History of D&C Previous section 2020 History of primary section H/O lithotripsy Family History Family History Other Unknown family medical history Social History Social History Smoking status: Never smoker Alcohol intake: never Substance use: never Do You Feel Safe in your Home?: Yes Lack of Transportation: No Lack of Food: Never True Current Housing: I Have Housing Concerned About Future Housing: No Difficulty Paying Gas/Electric Bills: No Difficulty Paying for Meds: No Currently Unemployed: No Education: High School Diploma/GED Difficulty w/ Childcare or Family Care: No Living arrangements: with family Additional living arrangements comments: & son Gender identity (if verbalized by the patient): Female Spiritual care concerns: No Agree to blood products: Yes Meds Home Medications and Allergies Home Medications ?Medication ?Instructions ?Recorded ?Confirmed ?Type acetaminophen 500 mg capsule 1,000 mg (2 x 500 mg) PO Q6H PRN 01/16/24 10/13/24 Rx pain #20 caps vits no.130-ferrous fum 1 tablet PO DAILY #30 tabs 01/16/24 11/06/24 Rx 27 mg iron-folic acid 800 mcg tablet ( Vitamin) aspirin 81 mg capsule 81 mg PO DAILY 10/13/24 11/06/24 History Allergies Allergy/AdvReac Type Severity Reaction Status Date / Time No Known Allergies Allergy Verified 11/06/24 05:21 Vital Signs Vital Signs - 24 hr 11/06/24 05:26 11/06/24 05:30 11/06/24 05:31 Temperature Pulse Rate 75 68 Blood Pressure 128/95 H 135/71 Pulse Oximetry 100 99 Oxygen Delivery 11/06/24 05:36 11/06/24 05:41 11/06/24 05:47 Temperature Pulse Rate Blood Pressure Pulse Oximetry 98 100 99 Oxygen Delivery 11/06/24 05:52 11/06/24 05:57 11/06/24 06:00 Temperature Pulse Rate Blood Pressure Pulse Oximetry 98 98 97 Oxygen Delivery 11/06/24 06:01 11/06/24 06:05 11/06/24 06:09 Temperature 97.5 F L Pulse Rate 68 Blood Pressure 137/74 Pulse Oximetry 98 Oxygen Delivery 11/06/24 06:18 Temperature Pulse Rate Blood Pressure Pulse Oximetry Oxygen Delivery Room Air Exam Const: General: comfortable and no acute distress HENMT: Mouth: Yes moist mucous membranes Neck: Neck: supple Resp: Effort & Inspection: normal respiratory effort Cardio: Rate: regular rate Skin: General skin exam: normal color Extrem: General: normal to inspection Psych: Mental Status: mental status grossly normal H&P: Results Labs Labs: Short CBC 11/06/24 Range/Units 05:48 WBC 4.3 L (4.5-10.0) K/mm3 Hgb 10.3 L (12.0-15.0) g/dL Hct 33.3 L (37.0-47.0) % Plt Count 200 (150-375) k/mm3 [facility] 11/06/24 05:48 Sodium 137 Potassium 3.5 Chloride 108 H Carbon Dioxide 18 L BUN 13 Creatinine 0.51 L Glucose 146 H Calcium 9.0 Liver Function 11/06/24 Range/Units 05:48 Total Bilirubin 0.5 (0.2-1.3) mg/dL AST 21 (14-36) U/L ALT 16 (6-35) U/L Alkaline Phosphatase 335 H (38-126) U/L Albumin 3.5 (3.5-5.1) g/dL Assessment and Plan Assessment and plan (1) Chronic hypertension complicating or reason for care during childbirth: Code(s): O10.92 - Unspecified pre-existing hypertension complicating childbirth Status: Acute Assessment and Plan: - asymptomatic - BP normotensive without medications - labs wnl - testing reactive - will proceed with repeat c section at 38 weeks for chronic HTN (2) GDM, class A1: Code(s): O24.410 - Gestational diabetes mellitus in , diet controlled Status: Acute Assessment and Plan: - good glycemic control per patient - growth US wnl (3) Hx of section complicating : Code(s): O34.219 - Maternal care for unspecified type scar from previous delivery Status: Acute Assessment and Plan: - risks and benefits of TOLAC vs RCS discussed including risk of uterine rupture; patient desires repeat c section - transverse to oblique presentation on recent US (4) Encounter for sterilization: Code(s): Z30.2 - Encounter for sterilization Status: Acute Assessment and Plan: - patient desires permanent sterilization and has completed her childbearing - discussed permanence of bilateral salpingectomy and that this is not reversible; patient voices understanding - will proceed with bilateral salpingectomy at time of c section
[2024-11-06] MEDS: FAMOTIDINE 20 MG/2 ML VIAL IV PUSH (07:26)
[2024-11-06] MEDS: ONDANSETRON INJ 4 MG/2 ML VIAL IV PUSH ×2 (07:26→12:08)
--- NOTE | 2024-11-06 07:29 | WPDANESEPPF ---
Anes - Initial Pre Proc Eval Procedure: Operation Date: 11/06/24 07:30 Proposed Procedures p Repeat Section with Bilateral Tubal Ligation - Ignacio Santiago MD Date/Time: 11/06/24 07:29 Surgeon: Ignacio Santiago MD Pre Op Diagnosis: C/S Patient Data Age: 39 Gender: F Height: 1.5 m Weight: 72.7 kg Last Vital Signs Temp 97.5 F L 11/06/24 06:09 Pulse 68 11/06/24 06:01 BP 137/74 11/06/24 06:01 Pulse Ox 98 11/06/24 06:05 O2 Del Method Room Air 11/06/24 06:18 Allergies Allergy/AdvReac Type Severity Reaction Status Date / Time No Known Allergies Allergy Verified 11/06/24 05:21 Home Medications ?Medication ?Instructions ?Recorded ?Confirmed ?Type acetaminophen 500 mg capsule 1,000 mg (2 x 500 mg) PO Q6H PRN 01/16/24 10/13/24 Rx pain #20 caps vits no.130-ferrous fum 1 tablet PO DAILY #30 tabs 01/16/24 11/06/24 Rx 27 mg iron-folic acid 800 mcg tablet ( Vitamin) aspirin 81 mg capsule 81 mg PO DAILY 10/13/24 11/06/24 History Laboratory Tests 11/06/24 11/06/24 05:48 05:53 WBC 4.3 L K/mm3 (4.5-10.0) RBC 4.08 L M/mm3 (4.2-5.4) Hgb 10.3 L g/dL (12.0-15.0) Hct 33.3 L % (37.0-47.0) MCV 81.6 fl (80-100) MCH 25.2 L pg (26-34) MCHC 30.9 L g/dl (32-36) RDW 15.7 H % (11.5-14.5) Plt Count 200 k/mm3 (150-375) MPV 11.7 H fl (7.4-10.4) Immature Gran % (Auto) 0.2 % (0-0.5) Neut % (Auto) 61.3 % (45.5-73.1) Lymph % (Auto) 27.5 % (18.3-44.2) [place] % (Auto) 8.2 % (2.6-8.5) Eos % (Auto) 1.9 % (0-4.4) Baso % (Auto) 0.9 % (0.2-1.2) Lymph # (Auto) 1.17 K/mm3 (0.9-3.2) [place] # (Auto) 0.4 K/mm3 (0.1-0.6) Eos # (Auto) 0.1 K/mm3 (0-0.3) Baso # (Auto) 0.0 K/mm3 (0.0-0.1) Abs Immat Gran (auto) 0.01 K/mm3 (0.00-0.031) Absolute Neuts (auto) 2.6 K/mm3 (1.3-6.7) Absolute Nucleated RBC 0.000 K/mm3 (0.0-0.012) Nucleated RBC % 0.0 % (0.0-0.2) Sodium 137 mmol/L (137-145) Potassium 3.5 mmol/L (3.4-5.0) Chloride 108 H mmol/L (98-107) Carbon Dioxide 18 L mmol/L (22-30) Anion Gap 11 mmol/L (4-12) BUN 13 mg/dL (7-17) Creatinine 0.51 L mg/dL (0.7-1.0) Estim Creat Clear Calc Not Reportable Estimated GFR > 60 (59 - ) Glucose 146 H mg/dL (65-110) Uric Acid 4.6 mg/dL (2.5-7.5) Calcium 9.0 mg/dL (8.4-10.2) Total Bilirubin 0.5 mg/dL (0.2-1.3) AST 21 U/L (14-36) ALT 16 U/L (6-35) Alkaline Phosphatase 335 H U/L (38-126) Total Protein 7.0 g/dL (6.3-8.2) Albumin 3.5 g/dL (3.5-5.1) RPR Pending HIV 1&2 Ab/P24 Ag 4thGn Pending Blood Type B Positive Antibody Screen Negative Patient hx anesthesia problems: none Family hx anesthesia problems: none Results Review: All pre-operative results and documents have been reviewed as part of the pre-operative evaluation. [facility] Past Medical History Medical History H/O nephrolithotomy with removal of calculi Blood transfusion without reported diagnosis Anemia Acid reflux Missed 2010 delivery delivered 04/09/20, c/s, full term, male, 7#12 Abdominal pain, left lower quadrant No significant past medical history heart rate decelerations affecting management of mother Failure to progress in labor Hx of gastroesophageal reflux (GERD) Kidney stones Surgical History Surgical History History of D&C Previous section 2020 History of primary section H/O lithotripsy Family History Family History Other Unknown family medical history Social History Social History Smoking status: Never smoker Alcohol intake: never Substance use: never Do You Feel Safe in your Home?: Yes Lack of Transportation: No Lack of Food: Never True Current Housing: I Have Housing Concerned About Future Housing: No Difficulty Paying Gas/Electric Bills: No Difficulty Paying for Meds: No Currently Unemployed: No Education: High School Diploma/GED Difficulty w/ Childcare or Family Care: No Living arrangements: with family Additional living arrangements comments: & son Gender identity (if verbalized by the patient): Female Spiritual care concerns: No Agree to blood products: Yes Anes - Eval Final PreProcedure Day of Procedure 11/06/24 07:29 Patient weight: obese Lungs: normal air movement Airway: Mallampati scale class III Neurological: alert and oriented Last oral intake: >/= 8 hours ASA classification: II Emergent: no Anesthetic plan: proceed Anesthesia type and monitoring: regional spinal and standard monitoring Results Review: All pre-operative results and documents have been reviewed as part of the pre-operative evaluation. Pt w prev C section, now for elective repeat C section. Discussion via zoom cash reconciliation specialist. Informed Consent: The patient's anesthetic plan and its attendant risks and benefits were discussed with the patient/family/POA. Questions were solicited and answers provided to the satisfaction of the patient/family/POA.
[2024-11-06 07:35] LABS: Rapid Plasma Reagin Non-Reactive (NonReactive)
--- NOTE | 2024-11-06 07:35 | WPDHPUPDATE1 ---
History and Physical Update Update Date/Time: 11/06/24 07:35 History and Physical has been reviewed, including an updated exam of the patient. There are NO changes in the patient's condition. Risks, benefits, and alternatives have been discussed and questions answered. Patient agrees to proceed with procedure.
[2024-11-06] MEDS: ceFAZolin 2 GM/D5W 50 ML 2 GM/50 ML BAG IVPB (07:50)
--- NOTE | 2024-11-06 10:11 | W.PM.OBCSD ---
OB - Delivery Note Procedure Delivery date: 11/06/24 Pre-op diagnosis: Chronic Hypertension, Gestational Diabetes and Previous Delivery Post-op Diagnosis: Same Delivery monitor: External FHT Prior to decision for section, ACOG/SMFM labor guidelines were considered and discussed with the patient and staff. Decision made to proceed with the section.: Yes Procedure Performed: Repeat Secondary branch: low cervical, transverse and Tubal Ligation Surgeon: Ignacio Santiago MD Anesthesia type: Epidural Description of Procedure/Findings: The patient was taken to the operating room where she was placed in the dorsal supine position with a leftward tilt. The electronic monitor was placed and heart rate was found to be reassuring. She was prepped and draped in the normal sterile fashion, and anesthesia was checked to be adequate. A Pfannenstiel skin incision was made with the scalpel and carried through to the underlying layer of fascia with the scalpel. The fascia was incised in the midline and the incision extended laterally with the Morrissey scissors. The superior aspect of the fascial incision was then grasped with Awais clamps, elevated, and the underlying rectus muscles dissected off bluntly and with Morrissey scissors. Attention was then turned to the inferior aspect of the fascial incision, which in similar fashion was grasped, elevated, and the rectus muscles dissected off.? The rectus muscles were then in the midline, and the peritoneum entered bluntly. The peritoneal incision was extended superiorly and inferiorly with good visualization of the bladder. With the bladder blade providing retraction and visualization, the lower uterine segment was incised in a transverse fashion with the scalpel. The uterine incision was then extended laterally. The bladder blade was removed and the infant's head was elevated and delivered atraumatically. The remainder of the was then delivered without difficulty, and the infant's nose and mouth were suctioned with the bulb suction. The umbilical cord was doubly clamped and cut. The was then handed off to the waiting nursing staff. Specimens then obtained as listed below. The placenta was then removed manually and the uterus was cleared of all clots and debris. The uterine incision was repaired with 0-Monocryl in a running, interlocked fashion. The posterior cul-de-sac was manually cleared of all clots and debris. The uterus was returned to the abdomen. The gutters were then manually cleared of all clots and debris.? The uterine incision was visualized to be hemostatic. The salpingectomy was begun on the left side. The fallopian tube was grasped with two Babcocks. The mesosalpinx was cauterized and cut using the Ligasure device. The fallopian tube was transected at the cornua. Hemostasis was assured. The same procedure was performed on the right. Both tubes were sent to pathology. The fascia was reapproximated with 0-Vicryl in a running fashion. The subcutaneous tissues were irrigated with warmed normal saline, and hemostasis was assured. The skin was closed with 4-0 monocryl in a running subcuticular stitch. Fundal pressure was applied to express remaining intrauterine clots and debris. The patient tolerated the procedure well. Sponge, lap, and needle counts were correct times three per nursing. The patient was taken to the recovery room in stable condition. Specimen: Yes Estimated Blood Loss: 740 Pathology: Yes Complications: No immediate complications Condition: Stable Disposition: Floor Baby Date of : 11/06/24 Time of : 08:04 Gestational Age by Date: 36 gender: Male Weight (pounds): 7 Weight (ounces): 15 presentation: vertex Placenta delivery description: Expressed Cord Vessel Description: 3 Vessels, Nuchal Cord, Reduced and Delayed Cord Clamping
[2024-11-06] MEDS: KETOROLAC 15 MG/ML VIAL (*BKC) IV PUSH ×3 (11:24→23:41)
[2024-11-06] MEDS: LIDOCAINE 5% PATCH 1 PATCH TRANSDERM (11:24)
[2024-11-06 12:41] LABS: HIV 1/2 Ab P24 Ag Result Negative (Negative)
--- NOTE | 2024-11-06 14:50 | PC.NURSE ---
Patient requested assistance. [employer] student Dariana assisted with translation. Baby is awake and eagerly tries to latch. He holds the nipple in his mouth and sucks once or twice before letting go. He has had a few bottle feedings and may be expecting the milk to flow freely. Mom did not want to try for more than a minute or two before giving a bottle. She states that her first baby didn't want to breastfeed. She has a breast pump from 5 years ago so she was provided with an insurance pump to use while in the hospital and to take home with her. Reviewed use, cleaning, and frequency of pumping. Handout (Thai) given on cleaning her breast pump. Patient acknowledges that she understands that she should pump every three hours if baby doesn't breastfeed to support her milk supply. She should adjust the suction to the highest comfortable setting. User manual included for further reference on use and cleaning. Primary RN updated.
[2024-11-06] MEDS: ACETAMINOPHEN 325 MG TABLET 650 MG PO ×2 (17:40→23:41)
[2024-11-07] MEDS: DEXTROSE 5%/0.45% SOD CHL 1,000 ML 125 ML IV CONT (03:52)
[2024-11-07 04:20] VITALS: BP 101/62; PULSE 65; RESP 16; TEMP 36.6; O2SAT 97
[2024-11-07] MEDS: diphenhydrAMINE HCl INJ 50 MG/ML VIAL 25 MG IV PUSH (04:28)
[2024-11-07 05:21] LABS: Basophils Percent Auto 0.5 % (0.2-1.2); Eosinophils Absolute Auto 0.1 K/mm3 (0-0.3); Eosinophils Percent Auto 1.6 % (0-4.4); Hematocrit 27.3 % (37.0-47.0); Hemoglobin 8.3 g/dL (12.0-15.0); Immature Granulocyte Absolute 0.02 K/mm3 (0.00-0.031); Immature Granulocyte Percent A 0.3 % (0-0.5); Lymphocytes Absolute Auto 1.59 K/mm3 (0.9-3.2); Lymphocytes Percent Auto 21.8 % (18.3-44.2); Mean Corpuscular HGB Conc 30.4 g/dl (32-36); Mean Corpuscular Hemoglobin 25.3 pg (26-34); Mean Corpuscular Volume 83.2 fl (80-100); Monocytes Absolute Auto 0.4 K/mm3 (0.1-0.6); Neutrophils Absolute Auto 5.1 K/mm3 (1.3-6.7); Neutrophils Percent Auto 69.8 % (45.5-73.1); Platelet Count Result 165 k/mm3 (150-375); Red Blood Count 3.28 M/mm3 (4.2-5.4); Red Cell Distribution Width 15.9 % (11.5-14.5); White Blood Count 7.3 K/mm3 (4.5-10.0)
[2024-11-07] MEDS: MULTIVIT/MIN/PREN/FOL AC/IRON TABLET 1 TAB PO (06:43)
[2024-11-07] MEDS: POLYSACCHARIDE IRON COMPLEX 150 MG CAPSULE PO ×2 (06:44→16:49)
[2024-11-07] MEDS: DOCUSATE SODIUM 100 MG CAPSULE PO ×2 (06:44→16:49)
[2024-11-07 06:45] VITALS: BP 101/73; PULSE 66; RESP 18; TEMP 36.7; O2SAT 97
[2024-11-07] MEDS: KETOROLAC 15 MG/ML VIAL (*BKC) IV PUSH (06:45)
[2024-11-07] MEDS: ACETAMINOPHEN 325 MG TABLET 650 MG PO ×3 (06:45→21:46)
[2024-11-07] MEDS: SIMETHICONE 80 MG TAB.CHEW PO ×3 (06:46→16:49)
--- NOTE | 2024-11-07 09:04 | PM.OBPNVD ---
OB - PN: Subj Subjective Date/time seen: 11/07/24 09:04 Interval history: POD#1 s/p RLTCS Doing well, pain improved with meds Passing flatus Catheter in place, will remove this AM; had low urine output overnight Pumping/formula feeding OB - PN: Obj Data Labs 11/07/24 04:22 11/06/24 05:48 Labs: Laboratory Results - last 24 hr 11/06/24 11/07/24 05:48 04:22 WBC 7.3 RBC 3.28 L Hgb 8.3 L Hct 27.3 L MCV 83.2 MCH 25.3 L MCHC 30.4 L RDW 15.9 H Plt Count 165 MPV 12.0 H Immature Gran % (Auto) 0.3 Neut % (Auto) 69.8 Lymph % (Auto) 21.8 [place] % (Auto) 6.0 Eos % (Auto) 1.6 Baso % (Auto) 0.5 Lymph # (Auto) 1.59 [place] # (Auto) 0.4 Eos # (Auto) 0.1 Baso # (Auto) 0.0 Abs Immat Gran (auto) 0.02 Absolute Neuts (auto) 5.1 Absolute Nucleated RBC 0.000 Nucleated RBC % 0.0 HIV 1&2 Ab/P24 Ag 4thGn Negative OB - PN A/P Assessment and Plan (1) S/P : Code(s): Z98.891 - History of uterine scar from previous surgery Status: Acute (2) Anemia affecting : Code(s): O99.019 - Anemia complicating , unspecified trimester Status: Acute Assessment and Plan: - Hgb 8.3 - venofer x1 ordered Plan day: 1 Plan: routine care Time Spent With Patient Time: Total time spent is greater than 50% in coordination of care (as documented) at patient's floor/unit and/or counseling patient: Review of Systems Review of Systems: All systems reviewed & are unremarkable except as noted in HPI and below Exam Const: General: comfortable and no acute distress Orientation/consciousness: patient oriented x3 Resp: Effort & Inspection: normal respiratory effort GI: GI Palp: Yes Soft to palpation and No Tenderness to palpation present (GI) Other: incision c/d/i
[2024-11-07] MEDS: IRON SUCROSE COMPLEX 200 MG in SODIUM CHLORIDE 0.9% IV 100 ML 220 MG IVPB (10:20)
--- NOTE | 2024-11-07 12:15 | PC.NURSE ---
Introductions were made, then consulted with patient to assess needs related to . Discussed with mother her?plans to feed?her and the?experience so far. Father of the baby interpreted for mother, she is using her breast pump sometimes and baby is taking a formula bottle well. RN encouraged more routine use of breast pump to protect milk supply. Resources provided for inpatient and outpatient services with the feeding sheet, mom/baby guide and name written on the communication board. Mother voiced understanding of information and will call if there is a request for assistance. Reported to the Primary RN.
[2024-11-07] MEDS: IBUPROFEN 600 MG TABLET PO ×2 (12:23→21:46)
[2024-11-07] MEDS: HYDROcodone/acetaminophen (*CRX) 5-325 MG TABLET 1 TAB PO ×2 (14:36→17:25)
[2024-11-07 16:41] VITALS: BP 122/73; PULSE 69; RESP 16; TEMP 36.9; O2SAT 97
[2024-11-07 18:55] VITALS: BP 127/71; PULSE 66; RESP 16; TEMP 36.3; O2SAT 99
[2024-11-08] MEDS: HYDROcodone/acetaminophen (*CRX) 10-325 MG TABLET 1 TAB PO ×3 (00:46→14:02)
[2024-11-08] MEDS: IBUPROFEN 600 MG TABLET PO ×4 (04:08→22:26)
[2024-11-08] MEDS: ACETAMINOPHEN 325 MG TABLET 650 MG PO ×4 (04:08→22:26)
[2024-11-08 07:30] VITALS: BP 144/82; PULSE 68; RESP 16; TEMP 36.6; O2SAT 98
--- NOTE | 2024-11-08 08:44 | P.PNOB_ITS ---
OB - PN: Subj Subjective Date/time seen: 11/08/24 08:44 Interval history: POD#2 s/p RLTCS Doing well, pain improved with meds Passing flatus; will add miralax as patient was readmitted for constipation after her last c section Voiding without issues Pumping/formula feeding OB - PN: Obj Data Labs 11/07/24 04:22 11/06/24 05:48 OB - PN A/P Assessment and Plan (1) S/P : Code(s): Z98.891 - History of uterine scar from previous surgery Status: Acute (2) Anemia affecting : Code(s): O99.019 - Anemia complicating , unspecified trimester Status: Acute Assessment and Plan: - s/p venofer x1 Plan day: 2 Plan: routine care Time Spent With Patient Time: Total time spent is greater than 50% in coordination of care (as documented) at patient's floor/unit and/or counseling patient: Review of Systems 2 Review of Systems: All systems reviewed & are unremarkable except as noted in HPI and below Exam 2 Const: General: comfortable and no acute distress O rientation/consciousness: patient oriented x3 Resp: Effort & Inspection: normal respiratory effort GI: GI Palp: Yes Soft to palpation and No Tenderness to palpation present (GI) Other: incision c/d/i
[2024-11-08] MEDS: MULTIVIT/MIN/PREN/FOL AC/IRON TABLET 1 TAB PO (08:51)
[2024-11-08] MEDS: SIMETHICONE 80 MG TAB.CHEW PO ×3 (08:51→16:26)
[2024-11-08] MEDS: POLYSACCHARIDE IRON COMPLEX 150 MG CAPSULE PO ×2 (08:51→16:26)
[2024-11-08] MEDS: DOCUSATE SODIUM 100 MG CAPSULE PO ×2 (08:51→16:26)
[2024-11-08] MEDS: LIDOCAINE 5% PATCH 1 PATCH TRANSDERM (08:52)
[2024-11-08] MEDS: polyethylene glycoL 3350 17 GM POWD.PACK PO (09:02)
[2024-11-08 20:00] VITALS: BP 124/72; PULSE 60; RESP 16; TEMP 36.6; O2SAT 99
[2024-11-08] MEDS: ENOXAPARIN 40 MG/0.4 ML SYRINGE SUB-Q (21:18)
[2024-11-09] MEDS: IBUPROFEN 600 MG TABLET PO ×2 (04:27→11:10)
[2024-11-09] MEDS: ACETAMINOPHEN 325 MG TABLET 650 MG PO ×2 (04:27→11:10)
[2024-11-09 07:25] VITALS: BP 129/76; PULSE 59; RESP 16; TEMP 37; O2SAT 97
[2024-11-09] MEDS: MULTIVIT/MIN/PREN/FOL AC/IRON TABLET 1 TAB PO (08:38)
[2024-11-09] MEDS: SIMETHICONE 80 MG TAB.CHEW PO ×2 (08:38→11:10)
[2024-11-09] MEDS: DOCUSATE SODIUM 100 MG CAPSULE PO ×2 (08:38→16:03)
[2024-11-09] MEDS: POLYSACCHARIDE IRON COMPLEX 150 MG CAPSULE PO ×2 (08:38→16:03)
[2024-11-09] MEDS: polyethylene glycoL 3350 17 GM POWD.PACK PO (08:39)
--- NOTE | 2024-11-09 12:33 | P.PNOB_ITS ---
OB - PN: Subj Subjective Date/time seen: 11/09/24 12:33 Interval history: POD#3 s/p RLTCS Doing well, pain improved with meds Passing flatus, has not yet had bowel movement Had right calf/foot pain last night, no swelling or tenderness this AM; received 1 dose of lovenox and had normal RLE doppler this AM OB - PN: Obj Data Labs 11/07/24 04:22 11/06/24 05:48 Imaging Radiologist's impression: Impressions Venous Doppler Study 11/09/24 08:15 IMPRESSION: 1: No lower extremity deep venous thrombosis. OB - PN A/P Assessment and Plan (1) S/P : Code(s): Z98.891 - History of uterine scar from previous surgery Status: Acute Plan day: 3 Plan: routine care and discharge home Time Spent With Patient Time: Total time spent is greater than 50% in coordination of care (as documented) at patient's floor/unit and/or counseling patient: Review of Systems 2 Review of Systems: All systems reviewed & are unremarkable except as noted in HPI and below Exam 2 Const: General: comfortable and no acute distress O rientation/consciousness: patient oriented x3 Resp: Effort & Inspection: normal respiratory effort GI: GI Palp: Yes Soft to palpation and No Tenderness to palpation present (GI) Other: incision c/d/i Extremities: Right lower extremity: normal to inspection, full ROM and lower leg Details: normal to inspection; no erythema, no tenderness, no palpable cords, edema noted and no unusual warmth; no edema Left lower extremity: n ormal to inspection, full ROM and lower leg Details: normal to inspection; no erythema, no tenderness, no palpable cords, edema noted and no unusual warmth
--- NOTE | 2024-11-09 12:50 | PC.NURSE ---
Consulted with mother concerning needs and she shared that she doesn't have any questions or concerns with feeding. Mother is bottle feeding appropriately for growth of infant. Patient received a Medela breast pump through insurance. She knows to take home all of her parts and pieces and has no other questions about pumping. Reinforced understanding of milk production with consistent pumping every 3 hours. Prevention/relief of engorgement, plugged ducts, and mastitis included in the mom/baby guide. Community resources ([facility] referral faxed to [place]) provided. Mother voiced understanding of the information shared, is confident to continue feeding her infant at home, when to call for assistance, denies any additional assistance or education at this time. Reported to the Primary RN.
--- NOTE | 2024-11-09 13:00 | P.DS_ITS ---
DS: Admitting Diagnosis Discharge Date 11/09/24 Admitting Diagnosis repeat c section, GDMA1, chronic hypertension OB - DS: Summary OB Procedures : None OB Procedures Intrapartum: low cervical, transverse OB Procedures: : None Peripartum Data Procedures: Procedures Operation Date: 11/06/24 07:30 Actual Procedure Side Surgeon p Repeat Section with Bilateral Tubal Ligation Bilateral Ignacio Santiago MD Time Spent with Patient Time attestation: Total time spent providing and/or coordinating discharge services: DS: Data Data Completed and Pending Completed studies during hospitalization: Pending at discharge 11/06/24 09:19 Surgical [PTH] Routine Discharge Plan Discharge Attending physician on discharge: Ignacio Santiago Discharging Clinician: Ignacio Santiago Patient Disposition: Home, Self-Care Activity: may shower, may drive after 2 weeks, as tolerated and pelvic rest Diet: as tolerated Patient Instructions: Antibiotic Form Patient Language: Luxembourgish Stand Alone Forms: General Discharge Information Follow-up/Referrals: Ignacio Santiago MD [Physician] - 1 Week Discharge Medications: New hydrocodone-acetaminophen 5-325 mg Tablet 1 tablet PO Q3H PRN (Reason: Breakthrough Pain Rated 4-6) Qty: 18 0RF docusate sodium 100 mg Capsule 100 mg PO BID Qty: 60 0RF ibuprofen 600 mg Tablet 600 mg PO Q6H Qty: 30 0RF polyethylene glycol 3350 [Miralax] 17 gram Powder In Packet 17 g PO QAM Qty: 30 0RF Continued acetaminophen 500 mg capsule 1,000 mg PO Q6H PRN (Reason: pain) Qty: 20 0RF Discontinued aspirin 81 mg capsule 81 mg PO DAILY No Action Vitamin 27 mg iron- 800 mcg tablet 1 tablet PO DAILY Qty: 30 0RF Date of admission: 11/06/24 05:01 Primary Care Provider: UNKNOWN,DOCTOR Admitting Provider: Ignacio Santiago Attending physician on admission: Ignacio Santiago Condition: Stable
[2024-11-09] MEDS: HYDROcodone/acetaminophen (*CRX) 5-325 MG TABLET 1 TAB PO (16:04)
== END 2024-11-09 16:29 | disposition home or self-care (01) | DRG 539 ==
LOC: ANHLDR 05:56 → ANHOB2 11:22
PROVIDERS: Admitting Provider Obstetrics & Gynecology; Visit Provider Obstetrics & Gynecology
PROC: 10D00Z1 Extraction of Products of Conception, Low, Open Approach (ICD-10-PCS; CPT 59514; principal; 2024-11-06 07:30)
DX: O34.211 Maternal care for low transverse scar from previous cesarean delivery (principal); Z37.0 Single live birth; Z3A.40 40 weeks gestation of pregnancy; O10.92 Unspecified pre-existing hypertension complicating childbirth; O24.410 Gestational diabetes mellitus in pregnancy, diet controlled; O69.81X0 Labor and delivery complicated by cord around neck, without compression, not applicable or unspecified; Z30.2 Encounter for sterilization; O99.02 Anemia complicating childbirth; D64.9 Anemia, unspecified
CPT/HCPCS: 36415; 80053; 84550; 85025; 86592; 86703; 86850; 86900; 86901; 88302; 93971; A9270; G0432; J0690; J1200; J1650; J1756; J1885; J2274; J2371; J2405; J2590; J7120